=== PATIENT | female | born 1995 | race Caucasian/White ===

== ENCOUNTER 2017-11-12 22:01 | Emergency (ER) | payer SELFPAY ==
--- NOTE | 2017-11-12 22:14 | EDM.PDOC ---
ED HPI GENERAL MEDICAL PROBLEM - General Stated Complaint: SWOLLEN NECK Time Seen by Provider: 11/12/17 22:13 Source of Information: Reports: Patient - History of Present Illness INITIAL COMMENTS - FREE TEXT/NARRATIVE: HISTORY AND PHYSICAL: History of present illness: [Patient presents with sore throat and bilateral ear effusion for several days No fever nausea vomiting chills sweats] no muffled voice trismus or drooling Review of systems: As per history of present illness and below otherwise all systems reviewed and negative. Past medical history: As per history of present illness and as reviewed below otherwise noncontributory. Surgical history: As per history of present illness and as reviewed below otherwise noncontributory. Social history: No reported history of drug or alcohol abuse. Family history: As per history of present illness and as reviewed below otherwise noncontributory. Physical exam: HEENT: Atraumatic, normocephalic, pupils reactive, negative for conjunctival pallor or scleral icterus, mucous membranes moist, throat clear, neck supple, nontender, trachea midline. Moderate erythema of oropharynx tonsils 3+ no exudates there is bilateral effusion Lungs: Clear to auscultation, breath sounds equal bilaterally, chest nontender. Heart: S1S2, regular, negative for clicks, rubs, or JVD. Abdomen: Soft, nondistended, nontender. Negative for masses or hepatosplenomegaly. Negative for costovertebral tenderness. Pelvis: Stable nontender. Genitourinary: Deferred. Rectal: Deferred. Extremities: Atraumatic, negative for cords or calf pain. Neurovascular unremarkable. Neuro: Awake, alert, oriented. Cranial nerves II through XII unremarkable. Cerebellum unremarkable. Motor and sensory unremarkable throughout. Exam nonfocal. Diagnostics: [Rapid strep ] Therapeutics: [Azithromycin ] Impression: [Pharyngitis] Definitive disposition and diagnosis as appropriate pending reevaluation and review of above. - Related Data Allergies Allergy/AdvReac Type Severity Reaction Status Date / Time No Known Allergies Allergy Verified 11/12/17 22:23 Home Meds: Home Meds . [No Known Home Meds] 05/17/15 [History] Past Medical History - Past Health History Medical/Surgical History: Denies Medical/Surgical History Social & Family History - Family History Family Medical History: Noncontributory Endocrine/Metabolic: Reports: Diabetes, Type I ED ROS GENERAL - Review of Systems Review Of Systems: See Below ED EXAM, GENERAL - Physical Exam Exam: See Below Course - Vital Signs Last Recorded V/S: Last Vital Signs Temp 97.9 F 11/12/17 22:20 Pulse 85 11/12/17 22:20 Resp 18 11/12/17 22:20 BP 174/93 H 11/12/17 22:20 Pulse Ox 98 11/12/17 22:20 - Orders/Labs/Meds Orders: Active Orders 24 hr Category Date Time Status STREP SCRN A RAPID W CULT CONF [RM] Stat Lab 11/12/17 22:10 Ordered Departure - Departure Time of Disposition: 22:26 Disposition: Home, Self-Care 01 Condition: Good Clinical Impression: Pharyngitis - Discharge Information Referrals: PCP,None [Primary Care Provider] - Additional Instructions: The following information is given to patients seen in the emergency department who are being discharged to home. This information is to outline your options for follow-up care. We provide all patients seen in our emergency department with a follow-up referral. The need for follow-up, as well as the timing and circumstances, are variable depending upon the specifics of your emergency department visit. If you don't have a primary care physician on staff, we will provide you with a referral. We always advise you to contact your personal physician following an emergency department visit to inform them of the circumstance of the visit and for follow-up with them and/or the need for any referrals to a consulting specialist. The emergency department will also refer you to a specialist when appropriate. This referral assures that you have the opportunity for follow-up care with a specialist. All of these measure are taken in an effort to provide you with optimal care, which includes your follow-up. Under all circumstances we always encourage you to contact your private physician who remains a resource for coordinating your care. When calling for follow-up care, please make the office aware that this follow-up is from your recent emergency room visit. If for any reason you are refused follow-up, please contact the [facility] emergency department at and asked to speak to the emergency department charge nurse. - My Orders Last 24 Hours: My Active Orders 11/12/17 22:10 STREP SCRN A RAPID W CULT CONF [RM] Stat - Assessment/Plan Last 24 Hours: My Active Orders 11/12/17 22:10 STREP SCRN A RAPID W CULT CONF [RM] Stat
[2017-11-12 22:23] VITALS: BP 174/93
== END 2017-11-12 22:40 | disposition home or self-care (01) ==
LOC: MW.ED 22:01
DX: J02.9 Acute pharyngitis, unspecified (principal)
CPT/HCPCS: 87081; 87880; 99283

== ENCOUNTER 2017-11-17 01:00 | Emergency (ER) | payer SELFPAY ==
--- NOTE | 2017-11-17 01:14 | EDM.PDOC ---
ED HPI GENERAL MEDICAL PROBLEM - General Chief Complaint: ENT Problem Stated Complaint: RIGHT EAR PAIN Time Seen by Provider: 11/17/17 01:09 - History of Present Illness INITIAL COMMENTS - FREE TEXT/NARRATIVE: HISTORY AND PHYSICAL: History of present illness: Patient 22-year-old female presents with concern of right ear pain Review of systems: As per history of present illness and below otherwise all systems reviewed and negative. Past medical history: As per history of present illness and as reviewed below otherwise noncontributory. Surgical history: As per history of present illness and as reviewed below otherwise noncontributory. Social history: No reported history of drug or alcohol abuse. Family history: As per history of present illness and as reviewed below otherwise noncontributory. Physical exam: HEENT: Atraumatic, normocephalic, pupils reactive, negative for conjunctival pallor or scleral icterus, mucous membranes moist, throat clear, neck supple, nontender, trachea midline. Lungs: Clear to auscultation, breath sounds equal bilaterally, chest nontender. Right TM is injected with absent light reflex external auditory is also inflamed pinna is tender with movement Heart: S1S2, regular, negative for clicks, rubs, or JVD. Abdomen: Soft, nondistended, nontender. Negative for masses or hepatosplenomegaly. Negative for costovertebral tenderness. Pelvis: Stable nontender. Genitourinary: Deferred. Rectal: Deferred. Extremities: Atraumatic, negative for cords or calf pain. Neurovascular unremarkable. Neuro: Awake, alert, oriented. Cranial nerves II through XII unremarkable. Cerebellum unremarkable. Motor and sensory unremarkable throughout. Exam nonfocal. Diagnostics: None Therapeutics: None Impression: 1 otalgia #2 right otitis media/externa Definitive disposition and diagnosis as appropriate pending reevaluation and review of above. - Related Data Allergies Allergy/AdvReac Type Severity Reaction Status Date / Time No Known Allergies Allergy Verified 11/12/17 22:23 Home Meds: Home Meds . [No Known Home Meds] 05/17/15 [History] Past Medical History - Past Health History Medical/Surgical History: Denies Medical/Surgical History Social & Family History - Family History Family Medical History: Noncontributory Endocrine/Metabolic: Reports: Diabetes, Type I ED ROS GENERAL - Review of Systems Review Of Systems: ROS reveals no pertinent complaints other than HPI. ED EXAM, GENERAL - Physical Exam Exam: See Below (See dictation) Course - Vital Signs Last Recorded V/S: Last Vital Signs Temp 36.4 C 11/17/17 01:09 Pulse 72 11/17/17 01:09 Resp 18 11/17/17 01:09 BP 136/85 11/17/17 01:09 Pulse Ox 98 11/17/17 01:09 Departure - Departure Time of Disposition: : Disposition: Home, Self-Care 01 Condition: Good Clinical Impression: Otitis media, Otitis externa - Discharge Information Referrals: PCP,None [Primary Care Provider] - Additional Instructions: The following information is given to patients seen in the emergency department who are being discharged to home. This information is to outline your options for follow-up care. We provide all patients seen in our emergency department with a follow-up referral. The need for follow-up, as well as the timing and circumstances, are variable depending upon the specifics of your emergency department visit. If you don't have a primary care physician on staff, we will provide you with a referral. We always advise you to contact your personal physician following an emergency department visit to inform them of the circumstance of the visit and for follow-up with them and/or the need for any referrals to a consulting specialist. The emergency department will also refer you to a specialist when appropriate. This referral assures that you have the opportunity for followup care with a specialist. All of these measure are taken in an effort to provide you with optimal care, which includes your followup. Under all circumstances we always encourage you to contact your private physician who remains a resource for coordinating your care. When calling for followup care, please make the office aware that this follow-up is from your recent emergency room visit. If for any reason you are refused follow-up, please contact the [facility] emergency department at and asked to speak to the emergency department charge nurse. Primary Care [address] [place] [id number] Bactrim Cortisporin Tylenol No. 3 as prescribed follow-up primary medical doctor and/or clinic above call to schedule appointment return as needed as discussed
[2017-11-17 01:34] VITALS: BP 130/78
== END 2017-11-17 01:25 | disposition home or self-care (01) ==
LOC: MW.ED 01:00
DX: H66.91 Otitis media, unspecified, right ear (principal); H60.91 Unspecified otitis externa, right ear
CPT/HCPCS: 99282

== ENCOUNTER 2017-11-23 16:31 | Emergency (ER) | payer SELFPAY ==
[2017-11-23] MEDS ORDERED: Sodium Chloride 0.9% 2.5 ML Syringe FLUSH PRN (17:05)
[2017-11-23] MEDS ORDERED: Sodium Chloride 0.9% 10 ML Syringe FLUSH PRN (17:05)
[2017-11-23] MEDS ORDERED: Sodium Chloride 0.9% 1,000 ML IV ONE (17:05)
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
[2017-11-23 18:10] LABS: CHLORIDE,CL 105 mmol/L (98-107); SODIUM,NA 141 mmol/L (136-145)
[2017-11-23] MEDS ORDERED: Iopamidol 755 MG/ML 500 ML Multipack Bottle IVPUSH STA (18:30)
[2017-11-23] MEDS ORDERED: Ketorolac 30 MG/ML SDV IVPUSH ONE (19:00)
[2017-11-23 19:48] VITALS: BP 155/96
--- NOTE | 2017-11-24 07:37 | CT ---
EXAM DATE: 11/23/17 PATIENT'S AGE: 22 Patient: MARYJANE LIZ Facility: [place], [place] Site . Site : 1995 Study: CT Abdomen/Pelvis WITH [id number]/[id number] 6:31:13 PM Ordering Physician: Rosalba Nieto Final Report: HISTORY: Low back pain, bilateral flank pain. TECHNIQUE: The abdomen and pelvis was scanned using helical technique at 3 mm after 100 cc of Isovue-370. Sagittal and coronal reconstructions were performed. FINDINGS: Lung bases: No infiltrate. Liver and gallbladder: The liver parenchyma is homogeneous. No calcified gallstones. Spleen, pancreas and adrenal glands: Unremarkable. Kidneys and bladder: Symmetric nephrograms. No calcified urolithiasis or hydronephrosis. Bladder is incompletely distended which results in diffuse wall thickening. Retroperitoneum and lymph nodes: Aorta is normal caliber. No pathologic periaortic lymphadenopathy. GI tract: Small amount of fluid is seen within the stomach. No dilated small bowel loops are seen. Normal appendix. Small amount of stool and gas is seen scattered throughout the colon with areas of decompression. No pericolonic inflammatory change. There is no free air in the abdomen. There is no free fluid the pelvis. Pelvic organs: 4.6 cm left ovarian cyst. Uterus and right ovary are normal. Osseous structures: Disc spaces and vertebral body heights maintained. Endplates are well defined. Abdominal wall: Tiny fat containing umbilical hernia. No inflammatory change. IMPRESSION: 1. 4.6 cm left ovarian cyst. 2. No calcified urolithiasis, hydronephrosis or ureteral obstruction. The bladder is decompressed which results in diffuse wall thickening. 3. Normal appendix. Dictated by Amy Sullivan MD @ 11/23/2017 6:47:27 PM Please note that all CT scans at this facility use dose modulation, iterative reconstruction, and/or weight-based dosing when appropriate to reduce radiation dose to as low as reasonably achievable. Dictated by: Amy Sullivan MD @ 11/23/2017 18:48:20 (Electronic Signature) Report Signed by Proxy. [facility]ENTER[facility]alini
--- NOTE | 2017-11-24 07:38 | CT ---
EXAM DATE: 11/23/17 PATIENT'S AGE: 22 Patient: MARYJANE LIZ Facility: [place], [place] Site . Site : 1995 Study: CT Spine Lumbar [id number] 7:02:13 PM Ordering Physician: Rosalba Nieto Final Report: INDICATION: Low back pain TECHNIQUE: CT lumbar spine without contrast. COMPARISON: None available FINDINGS: The lumbar spine alignment is within normal limits. The vertebral body heights are preserved without a compression deformity. There is no evidence of an acute lumbar spine fracture. There are apparent tiny disc protrusions at L4-5 and L5- S1. There is no significant central canal stenosis. No paravertebral soft tissue mass is seen. IMPRESSION: No evidence of an acute lumbar spine fracture. Apparent tiny disk protrusions in the lower lumbar spine without central canal stenosis. Dictated by Cj Shah MD @ 11/23/2017 7:24:10 PM Please note that all CT scans at this facility use dose modulation, iterative reconstruction, and/or weight-based dosing when appropriate to reduce radiation dose to as low as reasonably achievable. Dictated by: Cj Shah MD @ 11/23/2017 19:24:18 (Electronic Signature) Report Signed by Proxy. [facility]ITAL[facility]ini
== END 2017-11-23 19:50 | disposition home or self-care (01) ==
LOC: MW.ED 16:31
DX: M51.86 Other intervertebral disc disorders, lumbar region (principal); N83.202 Unspecified ovarian cyst, left side; F17.210 Nicotine dependence, cigarettes, uncomplicated
CPT/HCPCS: 36415; 72131; 74177; 80053; 81001; 82150; 83690; 84703; 85025; 96361; 96374; 99284; J1885; J7040; Q9967

== ENCOUNTER 2017-11-25 23:20 | Emergency (ER) | payer SELFPAY ==
--- NOTE | 2017-11-25 23:33 | EDM.PDOC ---
ED HPI GENERAL MEDICAL PROBLEM - General Chief Complaint: General Stated Complaint: NUMBNESS Time Seen by Provider: 11/25/17 23:33 Source of Information: Reports: Patient - History of Present Illness INITIAL COMMENTS - FREE TEXT/NARRATIVE: HISTORY AND PHYSICAL: History of present illness: 22-year-old female presenting mentioned department chief complaint of bilateral ear pain and sore scratchy throat 2 weeks. Patient states that she's had a sore scratchy throat for the past 2 weeks. She had been in the emergency department previously for similar symptoms and did not have a strep infection at that time. States it she has bilateral ear pain that is intermittent. She has had some associated nausea. She denies any associated fever, chills, nausea, vomiting, diarrhea or other signs of systemic infection. Currently denies any chest pain, palpitation, shortness of breath, syncopal episodes, or focal neurologic deficits. On exam right tympanic membrane is retracted no effusions or erythema. Left tympanic membrane is bulging with no effusions or erythema. Review of systems: As per history of present illness and below otherwise all systems reviewed and negative. Past medical history: As per history of present illness and as reviewed below otherwise noncontributory. Surgical history: As per history of present illness and as reviewed below otherwise noncontributory. Social history: No reported history of drug or alcohol abuse. Family history: As per history of present illness and as reviewed below otherwise noncontributory. Physical exam: HEENT: Atraumatic, normocephalic, pupils reactive, negative for conjunctival pallor or scleral icterus, mucous membranes moist, throat clear, neck supple, nontender, trachea midline. Lungs: Clear to auscultation, breath sounds equal bilaterally, chest nontender. Heart: S1S2, regular, negative for clicks, rubs, or JVD. Abdomen: Soft, nondistended, nontender. Negative for masses or hepatosplenomegaly. Negative for costovertebral tenderness. Pelvis: Stable nontender. Genitourinary: Deferred. Rectal: Deferred. Extremities: Atraumatic, negative for cords or calf pain. Neurovascular unremarkable. Neuro: Awake, alert, oriented. Cranial nerves II through XII unremarkable. Cerebellum unremarkable. Motor and sensory unremarkable throughout. Exam nonfocal. Diagnostics: CBC, CMP, UA, hCG, Therapeutics: 1 L normal saline, 8 mg IV Zofran Impression: Seasonal allergy Bilateral ear pain Plan: After discussion with patient most likely she is suffering from acute seasonal allergies. Surgery use Flonase and Afrin 2 puffs each nostril twice daily maximum 5 days for relief her sinus congestion. She should also use a cool mist vaporizer at night. She can use a Marisol pot as well for flushing. She should follow up with primary care provider and return to emergency department if any new or worsening symptoms. head Pain Score (Numeric/FACES): 7 - Related Data Allergies Allergy/AdvReac Type Severity Reaction Status Date / Time No Known Allergies Allergy Verified 11/25/17 23:25 Home Meds: Home Meds . 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: Musculoskeletal History: Reports: None Neurological History: Reports: None Psychiatric History: Reports: None Endocrine/Metabolic History: Reports: Obesity/BMI 30+ Hematologic History: Reports: None Immunologic History: Reports: None Oncologic (Cancer) History: Reports: None Dermatologic History: Reports: None - Infectious Disease History Infectious Disease History: Reports: Chicken Pox - Past Surgical History Head Surgeries/Procedures: Reports: None Respiratory Surgical History: Reports: None Female Surgical History: Reports: None Social & Family History - Family History Family Medical History: Noncontributory Endocrine/Metabolic: Reports: Diabetes, Type I - Tobacco Use Smoking Status *Q: Never Smoker - Caffeine Use Caffeine Use: Reports: None - Recreational Drug Use Recreational Drug Use: No ED ROS GENERAL - Review of Systems Review Of Systems: ROS reveals no pertinent complaints other than HPI. ED EXAM, GENERAL - Physical Exam Exam: See Below Course - Vital Signs Last Recorded V/S: Last Vital Signs Temp 97.2 F 11/26/17 00:49 Pulse 61 11/26/17 00:49 Resp 18 11/26/17 00:49 BP 139/80 11/26/17 00:49 Pulse Ox 98 11/26/17 00:49 - Orders/Labs/Meds Orders: Active Orders 24 hr Category Date Time Status EKG Documentation Completion [RC] STAT Care 11/25/17 23:44 Active CULTURE STREP A CONFIRMATION [RM] Stat Lab 11/26/17 00:05 Results CULTURE URINE [] Stat Lab 11/26/17 00:10 Received HCG QUALITATIVE,URINE [URCHEM] Stat Lab 11/26/17 00:10 Ordered STREP SCRN A RAPID W CULT CONF [RM] Stat Lab 11/26/17 00:05 Ordered UA W/MICROSCOPIC [URIN] Stat Lab 11/26/17 00:10 Ordered Labs: Laboratory Tests 11/25/17 11/25/17 11/26/17 Range/Units 23:55 23:55 00:10 WBC 11.23 H (4.0-11.0) K/uL RBC 4.77 (4.30-5.90) M/uL Hgb 13.7 (12.0-16.0) g/dL Hct 41.3 (36.0-46.0) % MCV 86.6 (80.0-98.0) fL MCH 28.7 (27.0-32.0) pg MCHC 33.2 (31.0-37.0) g/dL RDW Std Deviation 45.0 (28.0-62.0) fl RDW Coeff of Fiona 14 (11.0-15.0) % Plt Count 210 (150-400) K/uL MPV 12.50 H (7.40-12.00) fL Neut % (Auto) 63.9 (48.0-80.0) % Lymph % (Auto) 26.8 (16.0-40.0) % [place] % (Auto) 8.5 (0.0-15.0) % Eos % (Auto) 0.5 (0.0-7.0) % Baso % (Auto) 0.3 (0.0-1.5) % Neut # (Auto) 7.2 H (1.4-5.7) K/uL Lymph # (Auto) 3.0 H (0.6-2.4) K/uL [place] # (Auto) 1.0 H (0.0-0.8) K/uL Eos # (Auto) 0.1 (0.0-0.7) K/uL Baso # (Auto) 0.0 (0.0-0.1) K/uL Nucleated RBC % 0.0 /100WBC Nucleated RBCs # 0 K/uL Sodium 141 (136-145) mmol/L Potassium 3.8 (3.5-5.1) mmol/L Chloride 106 (98-107) mmol/L Carbon Dioxide 22.4 (21.0-32.0) mmol/L BUN 9 (7.0-18.0) mg/dL Creatinine 0.8 (0.6-1.0) mg/dL Est Cr Clr Drug Dosing 111.27 mL/min Estimated GFR (MDRD) > 60.0 ml/min Glucose 84 (74-106) mg/dL Calcium 9.3 (8.5-10.1) mg/dL Total Bilirubin 0.5 (0.2-1.0) mg/dL AST 21 (15-37) IU/L ALT 43 (14-63) IU/L Alkaline Phosphatase 97 (46-116) U/L Total Protein 7.6 (6.4-8.2) g/dL Albumin 4.2 (3.4-5.0) g/dL Globulin 3.4 (2.0-3.5) g/dL Albumin/Globulin Ratio 1.2 L (1.3-2.8) Urine Color RED Urine Appearance CLOUDY Urine pH 6.0 (5.0-8.0) Ur Specific [place] 1.020 (1.001-1.035) Urine Protein 30 (NEGATIVE) mg/dL Urine Glucose (UA) NEGATIVE (NEGATIVE) mg/dL Urine Ketones >=80 (NEGATIVE) mg/dL Urine Occult Blood LARGE H (NEGATIVE) Urine Nitrite NEGATIVE (NEGATIVE) Urine Bilirubin SMALL H (NEGATIVE) Urine Urobilinogen 0.2 (<2.0) EU/dL Ur Leukocyte Esterase TRACE (NEGATIVE) Urine RBC TOO NUMEROUS TO CT H (0-2/HPF) Urine WBC 1-3 (0-5/HPF) Ur Epithelial Cells FEW (NONE-FEW) Urine Bacteria FEW (NEGATIVE) Urinalysis Comment Urine HCG, Qual (NEGATIVE) 11/26/17 Range/Units 00:10 WBC (4.0-11.0) K/uL RBC (4.30-5.90) M/uL Hgb (12.0-16.0) g/dL Hct (36.0-46.0) % MCV (80.0-98.0) fL MCH (27.0-32.0) pg MCHC (31.0-37.0) g/dL RDW Std Deviation (28.0-62.0) fl RDW Coeff of Fiona (11.0-15.0) % Plt Count (150-400) K/uL MPV (7.40-12.00) fL Neut % (Auto) (48.0-80.0) % Lymph % (Auto) (16.0-40.0) % [place] % (Auto) (0.0-15.0) % Eos % (Auto) (0.0-7.0) % Baso % (Auto) (0.0-1.5) % Neut # (Auto) (1.4-5.7) K/uL Lymph # (Auto) (0.6-2.4) K/uL [place] # (Auto) (0.0-0.8) K/uL Eos # (Auto) (0.0-0.7) K/uL Baso # (Auto) (0.0-0.1) K/uL Nucleated RBC % /100WBC Nucleated RBCs # K/uL Sodium (136-145) mmol/L Potassium (3.5-5.1) mmol/L Chloride (98-107) mmol/L Carbon Dioxide (21.0-32.0) mmol/L BUN (7.0-18.0) mg/dL Creatinine (0.6-1.0) mg/dL Est Cr Clr Drug Dosing mL/min Estimated GFR (MDRD) ml/min Glucose (74-106) mg/dL Calcium (8.5-10.1) mg/dL Total Bilirubin (0.2-1.0) mg/dL AST (15-37) IU/L ALT (14-63) IU/L Alkaline Phosphatase (46-116) U/L Total Protein (6.4-8.2) g/dL Albumin (3.4-5.0) g/dL Globulin (2.0-3.5) g/dL Albumin/Globulin Ratio (1.3-2.8) Urine Color Urine Appearance Urine pH (5.0-8.0) Ur Specific [place] (1.001-1.035) Urine Protein (NEGATIVE) mg/dL Urine Glucose (UA) (NEGATIVE) mg/dL Urine Ketones (NEGATIVE) mg/dL Urine Occult Blood (NEGATIVE) Urine Nitrite (NEGATIVE) Urine Bilirubin (NEGATIVE) Urine Urobilinogen (<2.0) EU/dL Ur Leukocyte Esterase (NEGATIVE) Urine RBC (0-2/HPF) Urine WBC (0-5/HPF) Ur Epithelial Cells (NONE-FEW) Urine Bacteria (NEGATIVE) Urinalysis Comment Urine HCG, Qual NEGATIVE (NEGATIVE) Meds: Medications Discontinued Medications Generic Name Dose Route Start Last Admin Trade Name Sherie PRN Reason Stop Dose Admin Sodium Chloride 1,000 mls @ 999 mls/hr 11/25/17 23:46 11/26/17 00:15 Normal Saline IV 11/26/17 00:46 999 mls/hr STAT ONE Administration Ondansetron HCl 8 mg 11/25/17 23:46 11/26/17 00:15 Zofran IVPUSH 11/25/17 23:47 8 mg ONETIME ONE Administration Departure - Departure Time of Disposition: 01:54 Disposition: Home, Self-Care 01 Condition: Good Clinical Impression: Seasonal allergic reaction - Discharge Information Forms: ED Department Discharge Additional Instructions: My general discharge The following information is given to patients seen in the emergency department who are being discharged to home. This information is to outline your options for follow-up care. We provide all patients seen in our emergency department with a follow-up referral. The need for follow-up, as well as the timing and circumstances, are variable depending upon the specifics of your emergency department visit. If you don't have a primary care physician on staff, we will provide you with a referral. We always advise you to contact your personal physician following an emergency department visit to inform them of the circumstance of the visit and for follow-up with them and/or the need for any referrals to a consulting specialist. The emergency department will also refer you to a specialist when appropriate. This referral assures that you have the opportunity for follow-up care with a specialist. All of these measure are taken in an effort to provide you with optimal care, which includes your follow-up. Under all circumstances we always encourage you to contact your private physician who remains a resource for coordinating your care. When calling for follow-up care, please make the office aware that this follow-up is from your recent emergency room visit. If for any reason you are refused follow-up, please contact the [facility] Emergency Department at and asked to speak to the emergency department charge nurse. [facility] [address] [place] [id number] 1. Follow-up with primary care provider. 2. Use Flonase and Afrin as well as Marisol pot as we discussed. 3. May also use [id number] antihistamine. 4. Return emergency department if any new or worsening symptoms. - My Orders Last 24 Hours: My Active Orders 11/25/17 23:44 EKG Documentation Completion [RC] STAT 11/26/17 00:05 CULTURE STREP A CONFIRMATION [RM] Stat STREP SCRN A RAPID W CULT CONF [RM] Stat 11/26/17 00:10 CULTURE URINE [RM] Stat HCG QUALITATIVE,URINE [URCHEM] Stat UA W/MICROSCOPIC [URIN] Stat - Assessment/Plan Last 24 Hours: My Active Orders 11/25/17 23:44 EKG Documentation Completion [RC] STAT 11/26/17 00:05 CULTURE STREP A CONFIRMATION [RM] Stat STREP SCRN A RAPID W CULT CONF [RM] Stat 11/26/17 00:10 CULTURE URINE [RM] Stat HCG QUALITATIVE,URINE [URCHEM] Stat UA W/MICROSCOPIC [URIN] Stat
[2017-11-25] MEDS ORDERED: Ondansetron 4 MG/2 ML SDV IVPUSH ONE (23:46)
[2017-11-25] MEDS ORDERED: Sodium Chloride 0.9% 1,000 ML IV ONE (23:46)
[2017-11-26 00:29] LABS: CHLORIDE,CL 106 mmol/L (98-107); SODIUM,NA 141 mmol/L (136-145)
[2017-11-26 02:08] VITALS: BP 145/83
== END 2017-11-26 02:09 | disposition home or self-care (01) ==
LOC: MW.ED 23:20
DX: J30.2 Other seasonal allergic rhinitis (principal); H92.03 Otalgia, bilateral; E66.9 Obesity, unspecified
CPT/HCPCS: 36415; 80053; 81001; 81025; 82962; 85025; 87081; 87086; 87880; 93005; 96361; 96374; 99285; J2405; J7040

== ENCOUNTER 2017-12-05 20:13 | Emergency (ER) | payer OTHER ==
--- NOTE | 2017-12-05 20:35 | EDM.PDOC ---
ED HPI GENERAL MEDICAL PROBLEM - General Chief Complaint: Behavioral/Psych Stated Complaint: PT TRYING TO HARM HERSELF Time Seen by Provider: 12/05/17 20:14 Source of Information: Reports: Patient History Limitations: Reports: No Limitations - History of Present Illness INITIAL COMMENTS - FREE TEXT/NARRATIVE: HISTORY AND PHYSICAL: History of present illness 22-year-old female presenting the [facility] department with chief complaint of wanting to harm herself with past medical history of depression. who is present helps with the history. Patient states that she has felt overly depressed for some time now. states that he is getting to the point where he is afraid to leave her alone. Patient states that she does have a plan which would be to take "a bunch of pills". Does not have a narcotics prescription but does have a prescription for a muscle relaxer. states that he has taken all the pills away from her. Patient has been seen multiple times in the emergency department for other issues including nausea, vomiting, abdominal pain, and tingling sensation in her neck. I saw the patient for some seasonal allergies and she states that her nasal therapy has been helping. She also saw Dr. Capone who prescribed a muscle relaxer for her neck "tingling". does think that her depression may be somewhat stemming from her multiple medical issues without clear etiology. She does have a history of depression after her in 2016. States that that depression was much less severe than what she is experiencing now. States that she has not taken any drugs or alcohol. She currently denies any chest pain, palpitations, shortness breath, single episode, focal neurologic deficits. EKG shows normal sinus rhythm with heart rate of [address] changes. Review of systems: As per history of present illness and below otherwise all systems reviewed and negative. Past medical history: As per history of present illness and as reviewed below otherwise noncontributory. Surgical history: As per history of present illness and as reviewed below otherwise noncontributory. Social history: No reported history of drug or alcohol abuse. Family history: As per history of present illness and as reviewed below otherwise noncontributory. Physical exam: HEENT: Atraumatic, normocephalic, pupils reactive, negative for conjunctival pallor or scleral icterus, mucous membranes moist, throat clear, neck supple, nontender, trachea midline. Lungs: Clear to auscultation, breath sounds equal bilaterally, chest nontender. Heart: S1S2, regular, negative for clicks, rubs, or JVD. Abdomen: Soft, nondistended, nontender. Negative for masses or hepatosplenomegaly. Negative for costovertebral tenderness. Pelvis: Stable nontender. Genitourinary: Deferred. Rectal: Deferred. Extremities: Atraumatic, negative for cords or calf pain. Neurovascular unremarkable. Neuro: Awake, alert, oriented. Cranial nerves II through XII unremarkable. Cerebellum unremarkable. Motor and sensory unremarkable throughout. Exam nonfocal. Diagnostics: CBC, CMP, UA, UDS, hCG, EKG, EtOH, salicylate, Tylenol, TSH, mag Therapeutics: Ativan 1 mg by mouth 1 Impression: Suicidal ideations with plan Plan: CBC, CMP, hCG, EKG, EtOH, salicylates, Tylenol, TSH, and mag were all unremarkable. UDS was positive for marijuana. Patient also seemed to have a UTI with slight leukocyte esterase positive and positive for white blood cells. She was given 250 mg IM Rocephin and this was communicated to Dr. Talley who will treat her with oral Bactrim that we discussed. He also accepted the patient after all of the above was communicated and patient was placed on hold. 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: Musculoskeletal History: Reports: None Neurological History: Reports: None Psychiatric History: Reports: None Endocrine/Metabolic History: Reports: Obesity/BMI 30+ Hematologic History: Reports: None Immunologic History: Reports: None Oncologic (Cancer) History: Reports: None Dermatologic History: Reports: None - Infectious Disease History Infectious Disease History: Reports: Chicken Pox - Past Surgical History Head Surgeries/Procedures: Reports: None Respiratory Surgical History: Reports: None Female Surgical History: Reports: None Social & Family History - Family History Family Medical History: Noncontributory Endocrine/Metabolic: Reports: Diabetes, Type I - Caffeine Use Caffeine Use: Reports: None ED ROS GENERAL - Review of Systems Review Of Systems: ROS reveals no pertinent complaints other than HPI. ED EXAM, GENERAL - Physical Exam Exam: See Below Course - Vital Signs Last Recorded V/S: Last Vital Signs Temp 98 F 12/05/17 21:52 Pulse 69 12/05/17 21:52 Resp 19 12/05/17 21:52 BP 143/99 H 12/05/17 21:52 Pulse Ox 98 12/05/17 21:52 - Orders/Labs/Meds Orders: Active Orders 24 hr Category Date Time Status EKG Documentation Completion [RC] STAT Care 12/05/17 20:25 Active DRUG SCREEN, URINE [URCHEM] Stat Lab 12/05/17 20:25 Ordered UA W/MICROSCOPIC [URIN] Stat Lab 12/05/17 20:25 Ordered Labs: Laboratory Tests 12/05/17 12/05/17 12/05/17 Range/Units 20:25 20:25 20:40 WBC 9.78 (4.0-11.0) K/uL RBC 4.95 (4.30-5.90) M/uL Hgb 14.4 (12.0-16.0) g/dL Hct 43.4 (36.0-46.0) % MCV 87.7 (80.0-98.0) fL MCH 29.1 (27.0-32.0) pg MCHC 33.2 (31.0-37.0) g/dL RDW Std Deviation 46.7 (28.0-62.0) fl RDW Coeff of Fiona 15 (11.0-15.0) % Plt Count 197 (150-400) K/uL MPV 12.40 H (7.40-12.00) fL Neut % (Auto) 68.0 (48.0-80.0) % Lymph % (Auto) 24.5 (16.0-40.0) % [place] % (Auto) 6.5 (0.0-15.0) % Eos % (Auto) 0.8 (0.0-7.0) % Baso % (Auto) 0.2 (0.0-1.5) % Neut # (Auto) 6.6 H (1.4-5.7) K/uL Lymph # (Auto) 2.4 (0.6-2.4) K/uL [place] # (Auto) 0.6 (0.0-0.8) K/uL Eos # (Auto) 0.1 (0.0-0.7) K/uL Baso # (Auto) 0.0 (0.0-0.1) K/uL Nucleated RBC % 0.0 /100WBC Nucleated RBCs # 0 K/uL Sodium (136-145) mmol/L Potassium (3.5-5.1) mmol/L Chloride (98-107) mmol/L Carbon Dioxide (21.0-32.0) mmol/L BUN (7.0-18.0) mg/dL Creatinine (0.6-1.0) mg/dL Est Cr Clr Drug Dosing mL/min Estimated GFR (MDRD) ml/min Glucose (74-106) mg/dL Calcium (8.5-10.1) mg/dL Magnesium (1.8-2.4) mg/dL Total Bilirubin (0.2-1.0) mg/dL AST (15-37) IU/L ALT (14-63) IU/L Alkaline Phosphatase (46-116) U/L Total Protein (6.4-8.2) g/dL Albumin (3.4-5.0) g/dL Globulin (2.0-3.5) g/dL Albumin/Globulin Ratio (1.3-2.8) TSH 3rd Generation (0.36-3.74) uIU/mL Urine Color YELLOW Urine Appearance SLT CLOUDY Urine pH 6.0 (5.0-8.0) Ur Specific [place] >= 1.030 (1.001-1.035) Urine Protein TRACE (NEGATIVE) mg/dL Urine Glucose (UA) NEGATIVE (NEGATIVE) mg/dL Urine Ketones TRACE H (NEGATIVE) mg/dL Urine Occult Blood SMALL H (NEGATIVE) Urine Nitrite NEGATIVE (NEGATIVE) Urine Bilirubin SMALL H (NEGATIVE) Urine Urobilinogen 0.2 (<2.0) EU/dL Ur Leukocyte Esterase SMALL (NEGATIVE) Urine RBC 0-3 (0-2/HPF) Urine WBC 20-25 (0-5/HPF) Ur Epithelial Cells MODERATE (NONE-FEW) Urine Bacteria 2+ H (NEGATIVE) Salicylates (0-20) mg/dL Urine Opiates Screen NEGATIVE (NEGATIVE) Ur Oxycodone Screen NEGATIVE (NEGATIVE) Urine Methadone Screen NEGATIVE (NEGATIVE) Acetaminophen ug/mL Ur Barbiturates Screen NEGATIVE (NEGATIVE) Ur Phencyclidine Scrn NEGATIVE (NEGATIVE) Ur Amphetamine Screen NEGATIVE (NEGATIVE) U Methamphetamines Scrn NEGATIVE (NEGATIVE) U Benzodiazepines Scrn NEGATIVE (NEGATIVE) U Cocaine Metab Screen NEGATIVE (NEGATIVE) U Marijuana (THC) Screen POSITIVE (NEGATIVE) Ethyl Alcohol mg/dL 12/05/17 Range/Units 20:40 WBC (4.0-11.0) K/uL RBC (4.30-5.90) M/uL Hgb (12.0-16.0) g/dL Hct (36.0-46.0) % MCV (80.0-98.0) fL MCH (27.0-32.0) pg MCHC (31.0-37.0) g/dL RDW Std Deviation (28.0-62.0) fl RDW Coeff of Fiona (11.0-15.0) % Plt Count (150-400) K/uL MPV (7.40-12.00) fL Neut % (Auto) (48.0-80.0) % Lymph % (Auto) (16.0-40.0) % [place] % (Auto) (0.0-15.0) % Eos % (Auto) (0.0-7.0) % Baso % (Auto) (0.0-1.5) % Neut # (Auto) (1.4-5.7) K/uL Lymph # (Auto) (0.6-2.4) K/uL [place] # (Auto) (0.0-0.8) K/uL Eos # (Auto) (0.0-0.7) K/uL Baso # (Auto) (0.0-0.1) K/uL Nucleated RBC % /100WBC Nucleated RBCs # K/uL Sodium 142 (136-145) mmol/L Potassium 3.8 (3.5-5.1) mmol/L Chloride 106 (98-107) mmol/L Carbon Dioxide 23.7 (21.0-32.0) mmol/L BUN 14 (7.0-18.0) mg/dL Creatinine 0.9 (0.6-1.0) mg/dL Est Cr Clr Drug Dosing 98.91 mL/min Estimated GFR (MDRD) > 60.0 ml/min Glucose 91 (74-106) mg/dL Calcium 9.3 (8.5-10.1) mg/dL Magnesium 1.7 L (1.8-2.4) mg/dL Total Bilirubin 0.4 (0.2-1.0) mg/dL AST 22 (15-37) IU/L ALT 53 (14-63) IU/L Alkaline Phosphatase 108 (46-116) U/L Total Protein 7.7 (6.4-8.2) g/dL Albumin 4.4 (3.4-5.0) g/dL Globulin 3.3 (2.0-3.5) g/dL Albumin/Globulin Ratio 1.3 (1.3-2.8) TSH 3rd Generation 1.32 (0.36-3.74) uIU/mL Urine Color Urine Appearance Urine pH (5.0-8.0) Ur Specific [place] (1.001-1.035) Urine Protein (NEGATIVE) mg/dL Urine Glucose (UA) (NEGATIVE) mg/dL Urine Ketones (NEGATIVE) mg/dL Urine Occult Blood (NEGATIVE) Urine Nitrite (NEGATIVE) Urine Bilirubin (NEGATIVE) Urine Urobilinogen (<2.0) EU/dL Ur Leukocyte Esterase (NEGATIVE) Urine RBC (0-2/HPF) Urine WBC (0-5/HPF) Ur Epithelial Cells (NONE-FEW) Urine Bacteria (NEGATIVE) Salicylates 1.9 (0-20) mg/dL Urine Opiates Screen (NEGATIVE) Ur Oxycodone Screen (NEGATIVE) Urine Methadone Screen (NEGATIVE) Acetaminophen 0.0 ug/mL Ur Barbiturates Screen (NEGATIVE) Ur Phencyclidine Scrn (NEGATIVE) Ur Amphetamine Screen (NEGATIVE) U Methamphetamines Scrn (NEGATIVE) U Benzodiazepines Scrn (NEGATIVE) U Cocaine Metab Screen (NEGATIVE) U Marijuana (THC) Screen (NEGATIVE) Ethyl Alcohol < 3.0 mg/dL Meds: Medications Discontinued Medications Generic Name Dose Route Start Last Admin Trade Name Freq PRN Reason Stop Dose Admin Ceftriaxone Sodium 250 mg 12/05/17 21:56 Rocephin IM 12/05/17 21:57 ONETIME ONE Ibuprofen 800 mg 07/01/18 21:56 Motrin PO 12/05/17 21:57 ONETIME ONE Lorazepam 1 mg 12/05/17 20:47 12/05/17 21:18 Ativan PO 12/05/17 20:48 1 mg ONETIME ONE Administration Departure - Departure Time of Disposition: 22:00 Disposition: DC/Tfer to Psych Hosp/Unit 65 Condition: Good Clinical Impression: Depression with suicidal ideation UTI (urinary tract infection) Qualifiers: Urinary tract infection type: acute cystitis Hematuria presence: without hematuria Qualified Code(s): N30.00 - Acute cystitis without hematuria - Discharge Information Referrals: PCP,None [Primary Care Provider] - Forms: ED Department Discharge - My Orders Last 24 Hours: My Active Orders 12/05/17 20:25 EKG Documentation Completion [RC] STAT DRUG SCREEN, URINE [URCHEM] Stat UA W/MICROSCOPIC [URIN] Stat - Assessment/Plan Last 24 Hours: My Active Orders 12/05/17 20:25 EKG Documentation Completion [RC] STAT DRUG SCREEN, URINE [URCHEM] Stat UA W/MICROSCOPIC [URIN] Stat
[2017-12-05] MEDS ORDERED: LORazepam 1 MG Tab PO ONE (20:47)
[2017-12-05 21:22] LABS: CHLORIDE,CL 106 mmol/L (98-107); SODIUM,NA 142 mmol/L (136-145)
[2017-12-05 21:53] VITALS: BP 143/99
[2017-12-05] MEDS ORDERED: cefTRIAXone 250 MG Vial IM ONE (21:56)
[2017-12-05] MEDS ORDERED: Ibuprofen 800 MG Tab PO ONE (21:56)
[2017-12-05] MEDS ORDERED: Lidocaine 1% 20 ML MDV INJECT ONE (22:01)
[2017-12-05] MEDS ORDERED: Lidocaine 1% 2 ML ONE (22:09)
== END 2017-12-05 23:30 ==
LOC: MW.ED 20:13
DX: F32.9 Major depressive disorder, single episode, unspecified (principal); R45.851 Suicidal ideations; N30.00 Acute cystitis without hematuria
CPT/HCPCS: 36415; 80053; 80305; 81001; 83735; 84443; 85025; 96372; 99285; A9270; G0480; J0696; J2001

== ENCOUNTER 2017-12-12 04:06 | Emergency (ER) | payer SELFPAY ==
[2017-12-12 04:14] VITALS: BP 133/89
[2017-12-12] MEDS ORDERED: Acetaminophen 500 MG Tab PO ONE (04:24)
--- NOTE | 2017-12-12 04:25 | EDM.PDOC ---
ED HPI GENERAL MEDICAL PROBLEM - General Chief Complaint: Headache Stated Complaint: HEADACHE Time Seen by Provider: 12/12/17 04:22 - History of Present Illness INITIAL COMMENTS - FREE TEXT/NARRATIVE: HISTORY AND PHYSICAL: History of present illness: Patient is 22-year-old female presents with a concern of headache states she's had this off and on for the last week she denies trauma no numbness no weakness no nausea no vomiting she denies history of migraine headache. Review of systems: As per history of present illness and below otherwise all systems reviewed and negative. Past medical history: As per history of present illness and as reviewed below otherwise noncontributory. Surgical history: As per history of present illness and as reviewed below otherwise noncontributory. Social history: No reported history of drug or alcohol abuse. Family history: As per history of present illness and as reviewed below otherwise noncontributory. Physical exam: HEENT: Atraumatic, normocephalic, pupils reactive, negative for conjunctival pallor or scleral icterus, mucous membranes moist, throat clear, neck supple, nontender, trachea midline. Lungs: Clear to auscultation, breath sounds equal bilaterally, chest nontender. Heart: S1S2, regular, negative for clicks, rubs, or JVD. Abdomen: Soft, nondistended, nontender. Negative for masses or hepatosplenomegaly. Negative for costovertebral tenderness. Pelvis: Stable nontender. Genitourinary: Deferred. Rectal: Deferred. Extremities: Atraumatic, negative for cords or calf pain. Neurovascular unremarkable. Neuro: Awake, alert, oriented. Cranial nerves II through XII unremarkable. Cerebellum unremarkable. Motor and sensory unremarkable throughout. Exam nonfocal. Diagnostics: CT brain hCG Therapeutics: Tylenol 1 g Impression: #1 cephalgia Definitive disposition and diagnosis as appropriate pending reevaluation and review of above. 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: Musculoskeletal History: Reports: None Neurological History: Reports: None Psychiatric History: Reports: None Other Psychiatric History: post depression Endocrine/Metabolic History: Reports: Obesity/BMI 30+ Hematologic History: Reports: None Immunologic History: Reports: None Oncologic (Cancer) History: Reports: None Dermatologic History: Reports: None - Infectious Disease History Infectious Disease History: Reports: Chicken Pox - Past Surgical History Head Surgeries/Procedures: Reports: None Respiratory Surgical History: Reports: None Female Surgical History: Reports: None Social & Family History - Family History Family Medical History: Noncontributory Endocrine/Metabolic: Reports: Diabetes, Type I - Tobacco Use Smoking Status *Q: Never Smoker - Caffeine Use Caffeine Use: Reports: None ED ROS GENERAL - Review of Systems Review Of Systems: ROS reveals no pertinent complaints other than HPI. ED EXAM, GENERAL - Physical Exam Exam: See Below (Dictation) Course - Vital Signs Last Recorded V/S: Last Vital Signs Temp 36.2 C 12/12/17 04:13 Pulse 97 12/12/17 04:13 Resp 18 12/12/17 04:13 BP 133/89 12/12/17 04:13 Pulse Ox 97 12/12/17 04:13 - Orders/Labs/Meds Orders: Active Orders 24 hr Category Date Time Status Head wo Cont [CT] Stat Exams 12/12/17 04:16 Ordered HCG QUALITATIVE,SERUM [CHEM] Stat Lab 12/12/17 04:17 Ordered Departure - Departure Time of Disposition: 04:24 Disposition: Home, Self-Care 01 Condition: Good Clinical Impression: Cephalgia - Discharge Information Referrals: Dionisio Capone [Primary Care Provider] - Additional Instructions: The following information is given to patients seen in the emergency department who are being discharged to home. This information is to outline your options for follow-up care. We provide all patients seen in our emergency department with a follow-up referral. The need for follow-up, as well as the timing and circumstances, are variable depending upon the specifics of your emergency department visit. If you don't have a primary care physician on staff, we will provide you with a referral. We always advise you to contact your personal physician following an emergency department visit to inform them of the circumstance of the visit and for follow-up with them and/or the need for any referrals to a consulting specialist. The emergency department will also refer you to a specialist when appropriate. This referral assures that you have the opportunity for followup care with a specialist. All of these measure are taken in an effort to provide you with optimal care, which includes your followup. Under all circumstances we always encourage you to contact your private physician who remains a resource for coordinating your care. When calling for followup care, please make the office aware that this follow-up is from your recent emergency room visit. If for any reason you are refused follow-up, please contact the [facility] emergency department at and asked to speak to the emergency department charge nurse. [facility] [address] [place] [id number] Motrin/Tylenol as directed follow-up primary medical doctor return as needed as discussed - My Orders Last 24 Hours: My Active Orders 12/12/17 04:16 Head wo Cont [CT] Stat 12/12/17 04:17 HCG QUALITATIVE,SERUM [CHEM] Stat - Assessment/Plan Last 24 Hours: My Active Orders 12/12/17 04:16 Head wo Cont [CT] Stat 12/12/17 04:17 HCG QUALITATIVE,SERUM [CHEM] Stat
--- NOTE | 2017-12-13 20:36 | CT ---
EXAM DATE: 12/12/17 PATIENT'S AGE: 22 Patient: MARYJANE LIZ Facility: [place], [place] Site . Site : 1995 Study: CT Head [id number] 5:14:13 AM Ordering Physician: Doctor Ramirez Final Report: CT HEAD DATE: 12/12/2017 CLINICAL HISTORY: Patient with severe headache since last night and blurred vision. TECHNIQUE: Standard CT scanning of the head was performed. COMPARISON: None. FINDINGS: There is no intracranial hemorrhage. The delaney matter-white matter differentiation is intact. The size of the ventricular system is normal for age. There is no mass effect or midline shift. The calvarium is unremarkable. The orbits are unremarkable. The paranasal sinuses are unremarkable. The mastoid air cells are unremarkable. The soft tissues are unremarkable. IMPRESSION: Normal head CT. Please note that all CT scans at this facility use dose modulation, iterative reconstruction, and/or weight-based dosing when appropriate to reduce radiation dose to as low as reasonably achievable. Dictated by: Dhiraj Castillo MD @ 12/12/2017 05:30:28 (Electronic Signature) Report Signed by Proxy. [facility]
== END 2017-12-12 05:43 | disposition home or self-care (01) ==
LOC: MW.ED 04:06
DX: R51 Headache (principal)
CPT/HCPCS: 36415; 70450; 84703; 99284; A9270

== ENCOUNTER 2017-12-18 23:05 | Emergency (ER) | payer SELFPAY ==
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
[2017-12-19 00:22] LABS: CHLORIDE,CL 103 mmol/L (98-107); SODIUM,NA 140 mmol/L (136-145)
[2017-12-19 01:29] VITALS: BP 131/81
== END 2017-12-19 02:12 ==
LOC: MW.ED 23:05
DX: T48.1X2A Poisoning by skeletal muscle relaxants [neuromuscular blocking agents], intentional self-harm, initial encounter (principal); T43.592A Poisoning by other antipsychotics and neuroleptics, intentional self-harm, initial encounter; F32.9 Major depressive disorder, single episode, unspecified
CPT/HCPCS: 36415; 80053; 80305; 81001; 81025; 84443; 85025; 93005; 99285; G0480

== ENCOUNTER 2018-01-15 23:32 | Emergency (ER) | payer SELFPAY ==
--- NOTE | 2018-01-15 23:40 | EDM.PDOC ---
ED HPI GENERAL MEDICAL PROBLEM - General Stated Complaint: NECK STIFF AND CAN'T MOVE IT Time Seen by Provider: 01/15/18 23:39 Source of Information: Reports: Patient History Limitations: Reports: No Limitations - History of Present Illness INITIAL COMMENTS - FREE TEXT/NARRATIVE: HISTORY AND PHYSICAL: History of present illness: 22-year-old female presenting months department with chief complaint of neck pain 1 day Patient is well known to the emergency department and states that today she has been having neck pain. She was in [place] emergency room and they gave her cyclobenzaprine. She states that she has been taking the muscle relaxer but her neck was more this evening. She plans on following up with a masseuse on Wednesday. She currently denies any fever, chills, chest pain, palpitations, shortness breath, syncopal episodes, or focal neurologic deficits. Review of systems: As per history of present illness and below otherwise all systems reviewed and negative. Past medical history: As per history of present illness and as reviewed below otherwise noncontributory. Surgical history: As per history of present illness and as reviewed below otherwise noncontributory. Social history: No reported history of drug or alcohol abuse. Family history: As per history of present illness and as reviewed below otherwise noncontributory. Physical exam: HEENT: Atraumatic, normocephalic, pupils reactive, negative for conjunctival pallor or scleral icterus, mucous membranes moist, throat clear, neck supple, nontender, trachea midline. Lungs: Clear to auscultation, breath sounds equal bilaterally, chest nontender. Heart: S1S2, regular, negative for clicks, rubs, or JVD. Abdomen: Soft, nondistended, nontender. Negative for masses or hepatosplenomegaly. Negative for costovertebral tenderness. Pelvis: Stable nontender. Genitourinary: Deferred. Rectal: Deferred. Extremities: Atraumatic, negative for cords or calf pain. Neurovascular unremarkable. Neuro: Awake, alert, oriented. Cranial nerves II through XII unremarkable. Cerebellum unremarkable. Motor and sensory unremarkable throughout. Exam nonfocal. Diagnostics: [] Therapeutics: Tordol Impression: Neck strain Plan: Instructed patient to continue taking her cyclobenzaprine and follow-up with masseuse as well as ice muscle strain. She should follow-up with the primary care provider as we discussed. Definitive disposition and diagnosis as appropriate pending reevaluation and review of above. Neck Pain Score (Numeric/FACES): 9 - Related Data Allergies Allergy/AdvReac Type Severity Reaction Status Date / Time No Known Allergies Allergy Verified 01/15/18 23:45 Home Meds: Home Meds . [No Known Home Meds] 01/06/18 [History] Past Medical History - Past Health History Medical/Surgical History: Denies Medical/Surgical History HEENT History: Reports: None Cardiovascular History: Reports: None Respiratory History: Reports: None Gastrointestinal History: Reports: None Genitourinary History: Reports: None [employer] History: Reports: Musculoskeletal History: Reports: None Neurological History: Reports: None Psychiatric History: Reports: None Other Psychiatric History: post depression Endocrine/Metabolic History: Reports: Obesity/BMI 30+ Hematologic History: Reports: None Immunologic History: Reports: None Oncologic (Cancer) History: Reports: None Dermatologic History: Reports: None - Infectious Disease History Infectious Disease History: Reports: Chicken Pox - Past Surgical History Head Surgeries/Procedures: Reports: None Respiratory Surgical History: Reports: None Female Surgical History: Reports: None Social & Family History - Family History Family Medical History: Noncontributory Endocrine/Metabolic: Reports: Diabetes, Type I - Caffeine Use Caffeine Use: Reports: None ED ROS GENERAL - Review of Systems Review Of Systems: ROS reveals no pertinent complaints other than HPI. ED EXAM, GENERAL - Physical Exam Exam: See Below Course - Vital Signs Last Recorded V/S: Last Vital Signs Temp 98.5 F 01/15/18 23:42 Pulse 78 01/15/18 23:42 Resp 12 01/15/18 23:42 BP 152/87 H 01/15/18 23:42 Pulse Ox 96 01/15/18 23:42 - Orders/Labs/Meds Orders: Active Orders 24 hr Category Date Time Status Ketorolac [Toradol] Med 01/15/18 23:53 Once 60 mg IM ONETIME ONE Departure - Departure Time of Disposition: 23:56 Disposition: Home, Self-Care 01 Condition: Good Clinical Impression: Neck muscle strain Qualifiers: Encounter type: initial encounter Qualified Code(s): S16.1XXA - Strain of muscle, fascia and tendon at neck level, initial encounter - Discharge Information Referrals: PCP,None [Primary Care Provider] - Additional Instructions: My general discharge The following information is given to patients seen in the emergency department who are being discharged to home. This information is to outline your options for follow-up care. We provide all patients seen in our emergency department with a follow-up referral. The need for follow-up, as well as the timing and circumstances, are variable depending upon the specifics of your emergency department visit. If you don't have a primary care physician on staff, we will provide you with a referral. We always advise you to contact your personal physician following an emergency department visit to inform them of the circumstance of the visit and for follow-up with them and/or the need for any referrals to a consulting specialist. The emergency department will also refer you to a specialist when appropriate. This referral assures that you have the opportunity for follow-up care with a specialist. All of these measure are taken in an effort to provide you with optimal care, which includes your follow-up. Under all circumstances we always encourage you to contact your private physician who remains a resource for coordinating your care. When calling for follow-up care, please make the office aware that this follow-up is from your recent emergency room visit. If for any reason you are refused follow-up, please contact the [facility] Emergency Department at and asked to speak to the emergency department charge nurse. Follow-up with primary care provider. Take cyclobenzaprine as previously prescribed Return to emergency department if any new or worsening symptoms - My Orders Last 24 Hours: My Active Orders 01/15/18 23:53 Ketorolac [Toradol] 60 mg IM ONETIME ONE - Assessment/Plan Last 24 Hours: My Active Orders 01/15/18 23:53 Ketorolac [Toradol] 60 mg IM ONETIME ONE
[2018-01-15] MEDS ORDERED: Ketorolac 60 MG/2 ML SDV IM ONE (23:53)
[2018-01-16 00:19] VITALS: BP 138/95
== END 2018-01-16 00:19 | disposition home or self-care (01) ==
LOC: MW.ED 23:32
DX: S16.1XXA Strain of muscle, fascia and tendon at neck level, initial encounter (principal); E66.9 Obesity, unspecified; X58.XXXA Exposure to other specified factors, initial encounter
CPT/HCPCS: 96372; 99283; J1885; 99282

== ENCOUNTER 2019-05-26 11:24 | Emergency (ER) | payer SELFPAY ==
--- NOTE | 2019-05-26 11:54 | EDM.PDOC ---
ED HPI GENERAL MEDICAL PROBLEM - General Chief Complaint: ENT Problem Stated Complaint: SOB Time Seen by Provider: 05/26/19 11:25 Source of Information: Reports: Patient History Limitations: Reports: No Limitations - History of Present Illness INITIAL COMMENTS - FREE TEXT/NARRATIVE: This 23 year old female presents to the ED with her and son with a chief complaint of chest pressure for 60 prior to arrival to ED. She also complains of SOB with mild exertion. She denies any radiation of pain into her extremity, jaw or shoulders. She denies any nausea or vomiting. Onset: Today, Sudden (60 minutes) Duration: Hour(s): (one to two hours) Location: Reports: Chest. Denies: Abdomen, Back, Radiates to Quality: Reports: Pressure Severity: Moderate (mild to moderate) Improves with: Reports: Rest Worsens with: Reports: Movement Context: Reports: Activity Associated Symptoms: Reports: Chest Pain (no chest pain but complains of pressure "type chest pain". She feels that this is most likely a panic attack) . Denies: Cough, Diaphoresis, Fever/Chills, Headaches, Nausea/Vomiting - Related Data Allergies Allergy/AdvReac Type Severity Reaction Status Date / Time No Known Allergies Allergy Verified 05/26/19 11:28 Home Meds: Home Meds LORazepam [Ativan] 0.5 mg PO Q8HR PRN 5 Days #15 tablet MDD Not to exceed 3 in a day 05/26/19 [Rx] Potassium Citrate [Potassium Citrate ER] 15 meq PO ONETIME 1 Days #2 tablet.er 05/26/19 [Rx] Past Medical History - Past Health History Medical/Surgical History: Denies Medical/Surgical History HEENT History: Reports: None Cardiovascular History: Reports: None Respiratory History: Reports: None Gastrointestinal History: Reports: None Genitourinary History: Reports: None [employer] History: Reports: Musculoskeletal History: Reports: None Neurological History: Reports: None Psychiatric History: Reports: None Other Psychiatric History: post depression Endocrine/Metabolic History: Reports: Obesity/BMI 30+ Hematologic History: Reports: None Immunologic History: Reports: None Oncologic (Cancer) History: Reports: None Dermatologic History: Reports: None - Infectious Disease History Infectious Disease History: Reports: Chicken Pox - Past Surgical History Head Surgeries/Procedures: Reports: None Respiratory Surgical History: Reports: None Female Surgical History: Reports: None Social & Family History - Family History Family Medical History: Noncontributory Endocrine/Metabolic: Reports: Diabetes, Type I - Tobacco Use Smoking Status *Q: Current Some Day Smoker Years of Tobacco use: 2 Packs/Tins Daily: 0.1 - Caffeine Use Caffeine Use: Reports: None ED ROS GENERAL - Review of Systems Review Of Systems: See Below Constitutional: Reports: No Symptoms HEENT: Reports: No Symptoms Respiratory: Reports: Shortness of Breath (Mild to moderate.). Denies: Wheezing , Pleuritic Chest Pain, Cough Cardiovascular: Reports: Chest Pain (very mild but mainly pressure.), Lightheadedness (complains of lightheadness for 45 minutes). Denies: Dyspnea on Exertion, Edema, Orthopnea Endocrine: Reports: No Symptoms GI/Abdominal: Reports: No Symptoms : Reports: No Symptoms Musculoskeletal: Reports: No Symptoms Skin: Reports: No Symptoms Neurological: Reports: No Symptoms Psychiatric: Reports: No Symptoms Hematologic/Lymphatic: Reports: No Symptoms Immunologic: Reports: No Symptoms ED EXAM, GENERAL - Physical Exam Exam: See Below Exam Limited By: No Limitations General Appearance: Alert, WD/WN, No Apparent Distress, Anxious (Seems somewhat anxious.), Moderate Distress Eye Exam: Bilateral Eye: Normal Fundi, Normal Inspection, PERRL Ears: Normal External Exam, Normal Canal, Hearing Grossly Normal, Normal TMs Ear Exam: Bilateral Ear: Auricle Normal, Canal Normal, TM normal Nose: Normal Inspection, Normal Mucosa, No Blood Throat/Mouth: Normal Inspection, Normal Lips, Normal Teeth, Normal Gums, Normal Oropharynx, Normal Voice, No Airway Compromise Head: Atraumatic, Normocephalic Neck: Normal Inspection, Supple, Non-Tender, Full Range of Motion Respiratory/Chest: No Respiratory Distress, Lungs Clear, Normal Breath Sounds, No Accessory Muscle Use Cardiovascular: Normal Peripheral Pulses, Regular Rate, Rhythm, No Edema, No Gallop, No JVD, No Murmur, No Rub Peripheral Pulses: 3+: Carotid (L), Carotid (R), Brachial (L), Brachial (R), Popliteal (L), Popliteal (R), Dorsalis Pedis (L), Dorsalis Pedis (R) GI/Abdominal: Normal Bowel Sounds, Soft, Non-Tender, No Organomegaly, No Distention, No Abnormal Bruit, No Mass, Other (but is obese) Back Exam: Normal Inspection, Full Range of Motion, NT Extremities: Normal Inspection, Normal Range of Motion, Non-Tender, Normal Capillary Refill, No Pedal Edema Neurological: Alert, Oriented, CN II-XII Intact, Normal Cognition, Normal Gait, Normal Reflexes, No Motor/Sensory Deficits Psychiatric: Normal Affect, Normal Mood Skin Exam: Warm, Dry, Intact, Normal Color, No Rash Lymphatic: No Adenopathy Course - Vital Signs Last Recorded V/S: Last Vital Signs Temp 96.9 F 05/26/19 11:25 Pulse 76 05/26/19 13:36 Resp 16 05/26/19 13:36 BP 126/76 05/26/19 13:36 Pulse Ox 100 05/26/19 13:36 - Orders/Labs/Meds Orders: Active Orders 24 hr Category Date Time Status EKG 12 Lead [EKG Documentation Completion] [RC] STAT Care 05/26/19 12:26 Active Sodium Chloride 0.9% [Normal Saline] 1,000 ml Med 05/26/19 12:15 Active IV ASDIRECTED Sodium Chloride 0.9% [Saline Flush] Med 05/26/19 12:03 Active 10 ml FLUSH ASDIRECTED PRN Sodium Chloride 0.9% [Saline Flush] Med 05/26/19 12:03 Active 2.5 ml FLUSH ASDIRECTED PRN Saline Lock Insert [OM.PC] Stat Oth 05/26/19 12:03 Ordered Medication Orders Sodium Chloride (Normal Saline) 1,000 mls @ 75 mls/hr IV ASDIRECTED [facility] Last Admin: 05/26/19 12:35 Dose: 75 mls/hr Sodium Chloride (Saline Flush) 10 ml FLUSH ASDIRECTED PRN PRN Reason: Keep Vein Open Sodium Chloride (Saline Flush) 2.5 ml FLUSH ASDIRECTED PRN PRN Reason: Keep Vein Open Labs: Laboratory Tests 05/26/19 05/26/19 05/26/19 Range/Units 11:30 11:30 11:30 WBC 11.80 H (4.0-11.0) K/uL RBC 5.10 (4.30-5.90) M/uL Hgb 14.9 (12.0-16.0) g/dL Hct 45.0 (36.0-46.0) % MCV 88.2 (80.0-98.0) fL MCH 29.2 (27.0-32.0) pg MCHC 33.1 (31.0-37.0) g/dL RDW Std Deviation 45.6 (28.0-62.0) fl RDW Coeff of Fiona 14 (11.0-15.0) % Plt Count 230 (150-400) K/uL MPV 12.70 H (7.40-12.00) fL Neut % (Auto) 68.6 (48.0-80.0) % Lymph % (Auto) 23.8 (16.0-40.0) % [place] % (Auto) 6.8 (0.0-15.0) % Eos % (Auto) 0.6 (0.0-7.0) % Baso % (Auto) 0.2 (0.0-1.5) % Neut # (Auto) 8.1 H (1.4-5.7) K/uL Lymph # (Auto) 2.8 H (0.6-2.4) K/uL [place] # (Auto) 0.8 (0.0-0.8) K/uL Eos # (Auto) 0.1 (0.0-0.7) K/uL Baso # (Auto) 0.0 (0.0-0.1) K/uL Nucleated RBC % 0.0 /100WBC Nucleated RBCs # 0 K/uL Sodium 140 (136-145) mmol/L Potassium 3.2 L (3.5-5.1) mmol/L Chloride 103 (98-107) mmol/L Carbon Dioxide 23.1 (21.0-32.0) mmol/L BUN 14 (7.0-18.0) mg/dL Creatinine 0.8 (0.6-1.0) mg/dL Est Cr Clr Drug Dosing 110.33 mL/min Estimated GFR (MDRD) > 60.0 ml/min Glucose 87 (74-106) mg/dL Calcium 9.6 (8.5-10.1) mg/dL Total Bilirubin 0.8 (0.2-1.0) mg/dL AST 15 (15-37) IU/L ALT 28 (14-63) IU/L Alkaline Phosphatase 101 (46-116) U/L Troponin I < 0.050 (0.000-0.056) ng/mL B-Natriuretic Peptide 4 (<100) PG/ML Total Protein 8.7 H (6.4-8.2) g/dL Albumin 4.6 (3.4-5.0) g/dL Globulin 4.1 H (2.6-4.0) g/dL Albumin/Globulin Ratio 1.1 (0.9-1.6) 05/26/19 Range/Units 13:47 WBC (4.0-11.0) K/uL RBC (4.30-5.90) M/uL Hgb (12.0-16.0) g/dL Hct (36.0-46.0) % MCV (80.0-98.0) fL MCH (27.0-32.0) pg MCHC (31.0-37.0) g/dL RDW Std Deviation (28.0-62.0) fl RDW Coeff of Finoa (11.0-15.0) % Plt Count (150-400) K/uL MPV (7.40-12.00) fL Neut % (Auto) (48.0-80.0) % Lymph % (Auto) (16.0-40.0) % [place] % (Auto) (0.0-15.0) % Eos % (Auto) (0.0-7.0) % Baso % (Auto) (0.0-1.5) % Neut # (Auto) (1.4-5.7) K/uL Lymph # (Auto) (0.6-2.4) K/uL [place] # (Auto) (0.0-0.8) K/uL Eos # (Auto) (0.0-0.7) K/uL Baso # (Auto) (0.0-0.1) K/uL Nucleated RBC % /100WBC Nucleated RBCs # K/uL Sodium (136-145) mmol/L Potassium (3.5-5.1) mmol/L Chloride (98-107) mmol/L Carbon Dioxide (21.0-32.0) mmol/L BUN (7.0-18.0) mg/dL Creatinine (0.6-1.0) mg/dL Est Cr Clr Drug Dosing mL/min Estimated GFR (MDRD) ml/min Glucose (74-106) mg/dL Calcium (8.5-10.1) mg/dL Total Bilirubin (0.2-1.0) mg/dL AST (15-37) IU/L ALT (14-63) IU/L Alkaline Phosphatase (46-116) U/L Troponin I < 0.050 (0.000-0.056) ng/mL B-Natriuretic Peptide (<100) PG/ML Total Protein (6.4-8.2) g/dL Albumin (3.4-5.0) g/dL Globulin (2.6-4.0) g/dL Albumin/Globulin Ratio (0.9-1.6) Meds: Medications Generic Name Dose Route Start Last Admin Trade Name Freq PRN Reason Stop Dose Admin Sodium Chloride 1,000 mls @ 75 mls/hr 05/26/19 12:15 05/26/19 12:35 Normal Saline IV 75 mls/hr ASDIRECTED BABAK Administration Sodium Chloride 10 ml 05/26/19 12:03 Saline Flush FLUSH ASDIRECTED PRN Keep Vein Open Sodium Chloride 2.5 ml 05/26/19 12:03 Saline Flush FLUSH ASDIRECTED PRN Keep Vein Open Discontinued Medications Generic Name Dose Route Start Last Admin Trade Name Freq PRN Reason Stop Dose Admin Lorazepam 0.5 mg 05/26/19 12:08 05/26/19 12:38 Ativan PO 05/26/19 12:09 Not Given ONETIME ONE Lorazepam 0.5 mg 05/26/19 12:26 05/26/19 12:35 Ativan PO 05/26/19 12:27 0.5 mg ONETIME ONE Administration Ondansetron HCl 4 mg 05/26/19 12:32 05/26/19 12:35 Zofran IVPUSH 05/26/19 12:33 4 mg ONETIME ONE Administration - Radiology Interpretation Free Text/Narrative:: MDM: The patient HEART score is a: 1. Departure - Departure Time of Disposition: 14:51 Disposition: Home, Self-Care 01 Condition: Good Clinical Impression: Anxiety, Non-cardiac chest pain - Discharge Information *PRESCRIPTION DRUG MONITORING PROGRAM REVIEWED*: Yes *COPY OF PRESCRIPTION DRUG MONITORING REPORT IN PATIENT JULIANNE: Yes Prescriptions: Potassium Citrate [Potassium Citrate ER] 15 meq PO ONETIME 1 Days #2 tablet.er Instructions: Nonspecific Chest Pain, [id number], Living With Anxiety Referrals: PCP,None [Primary Care Provider] - Forms: ED Department Discharge Additional Instructions: Take all medications as directed. Rest for the next 24 hours. Follow up with your PCP in the next thee to four days. Return to the ED if your condition gets worse or if you had any other concerns. Happy Holidays to you and your family. Sepsis Event Note - Evaluation Sepsis Screening Result: No Definite Risk - Focused Exam Vital Signs: Vital Signs Temp Pulse Resp BP Pulse Ox 05/26/19 13:36 76 16 126/76 100 05/26/19 11:25 96.9 F 104 H 20 141/87 H 99 Date Exam was Performed: 05/26/19 Time Exam was Performed: 14:51 - My Orders Last 24 Hours: My Active Orders 05/26/19 12:03 Sodium Chloride 0.9% [Saline Flush] 10 ml FLUSH ASDIRECTED PRN Sodium Chloride 0.9% [Saline Flush] 2.5 ml FLUSH ASDIRECTED PRN Saline Lock Insert [OM.PC] Stat 05/26/19 12:15 Sodium Chloride 0.9% [Normal Saline] 1,000 ml IV ASDIRECTED 05/26/19 12:26 EKG 12 Lead [EKG Documentation Completion] [RC] STAT - Assessment/Plan Last 24 Hours: My Active Orders 05/26/19 12:03 Sodium Chloride 0.9% [Saline Flush] 10 ml FLUSH ASDIRECTED PRN Sodium Chloride 0.9% [Saline Flush] 2.5 ml FLUSH ASDIRECTED PRN Saline Lock Insert [OM.PC] Stat 05/26/19 12:15 Sodium Chloride 0.9% [Normal Saline] 1,000 ml IV ASDIRECTED 05/26/19 12:26 EKG 12 Lead [EKG Documentation Completion] [RC] STAT
[2019-05-26] MEDS ORDERED: Sodium Chloride 0.9% 10 ML Syringe FLUSH PRN (12:03)
[2019-05-26] MEDS ORDERED: Sodium Chloride 0.9% 2.5 ML Syringe FLUSH PRN (12:03)
[2019-05-26] MEDS ORDERED: LORazepam 0.5 MG Tab PO ONE ×2 (12:08→12:26)
[2019-05-26] MEDS ORDERED: Sodium Chloride 0.9% 1,000 ML IV SCH (12:15)
[2019-05-26] MEDS ORDERED: Ondansetron 4 MG/2 ML SDV IVPUSH ONE (12:32)
[2019-05-26 13:02] LABS: BLOOD UREA NITROGEN,BUN 14 mg/dL (7.0-18.0); CARBON DIOXIDE,CO2 23.1 mmol/L (21.0-32.0); CHLORIDE,CL 103 mmol/L (98-107); GLUCOSE RANDOM 87 mg/dL (74-106); POTASSIUM,K 3.2 mmol/L (3.5-5.1); SODIUM,NA 140 mmol/L (136-145)
--- NOTE | 2019-05-26 13:10 | CR ---
Chest: 2 views of the chest were obtained. Comparison: No previous chest x-ray is available. Heart size and mediastinum are normal. Lungs are clear with no acute parenchymal change. Bony structures appear within normal limits. Impression: 1. Nothing acute is seen on 2 view chest x-ray. Diagnostic code #1 This report was dictated in [place] Standard Time
[2019-05-26 13:37] VITALS: BP 126/76
[2019-05-26 15:27] VITALS: PULSE 72
== END 2019-05-26 15:05 | disposition home or self-care (01) ==
LOC: MW.ED 11:24
DX: R07.89 Other chest pain (principal); F41.9 Anxiety disorder, unspecified; F17.210 Nicotine dependence, cigarettes, uncomplicated; Z79.899 Other long term (current) drug therapy
CPT/HCPCS: 36415; 71046; 80053; 83880; 84484; 85025; 96361; 96374; 99285; A9270; J2405; J7030

== ENCOUNTER 2019-05-31 19:20 | Emergency (ER) | payer SELFPAY ==
--- NOTE | 2019-05-31 19:59 | EDM.PDOC ---
ED HPI GENERAL MEDICAL PROBLEM - General Chief Complaint: General Stated Complaint: TROUBLE BREATHING Time Seen by Provider: 05/31/19 19:54 Source of Information: Reports: Patient, RN Notes Reviewed History Limitations: Reports: No Limitations - History of Present Illness INITIAL COMMENTS - FREE TEXT/NARRATIVE: 23-year-old female complaining of multiple vague complaints from her head to her abdomen. Patient states she is short of breath since Wednesday and has abdominal cramps and back pain. Patient denies being denies fever and chills. Patient was recently in the room showing normal CBC and potassium that was 3.2. Otherwise normal labs. We will repeat CBC and obtain a chest x-ray on this patient. We will also do a and a UA on this patient Onset: Gradual Duration: Day(s): (5), Getting Worse Location: Reports: Chest, Abdomen Quality: Reports: Pressure, Other Severity: Mild Improves with: Reports: None Worsens with: Reports: None Associated Symptoms: Reports: Shortness of Breath, Weakness Abdomen Pain Score (Numeric/FACES): 8 - Related Data Allergies Allergy/AdvReac Type Severity Reaction Status Date / Time No Known Allergies Allergy Verified 05/31/19 19:36 Home Meds: Home Meds LORazepam [Ativan] 0.5 mg PO Q8HR PRN 5 Days #15 tablet MDD Not to exceed 3 in a day 05/26/19 [Rx] Potassium Citrate [Potassium Citrate ER] 15 meq PO ONETIME 1 Days #2 tablet.er 05/26/19 [Rx] Past Medical History - Past Health History Medical/Surgical History: Denies Medical/Surgical History HEENT History: Reports: None Cardiovascular History: Reports: None Respiratory History: Reports: None Gastrointestinal History: Reports: None Genitourinary History: Reports: None 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: Musculoskeletal History: Reports: None Neurological History: Reports: None Psychiatric History: Reports: Anxiety Other Psychiatric History: post depression Endocrine/Metabolic History: Reports: Obesity/BMI 30+ Hematologic History: Reports: None Immunologic History: Reports: None Oncologic (Cancer) History: Reports: None Dermatologic History: Reports: None - Infectious Disease History Infectious Disease History: Reports: Chicken Pox - Past Surgical History Head Surgeries/Procedures: Reports: None Respiratory Surgical History: Reports: None Female Surgical History: Reports: None Social & Family History - Family History Family Medical History: Noncontributory Endocrine/Metabolic: Reports: Diabetes, Type I - Tobacco Use Smoking Status *Q: Current Every Day Smoker Years of Tobacco use: 3 Packs/Tins Daily: 0.2 - Caffeine Use Caffeine Use: Reports: Coffee - Recreational Drug Use Recreational Drug Use: Yes Recreational Drug Type: Reports: Marijuana/Hashish Recreational Drug Use Frequency: Monthly ED ROS GENERAL - Review of Systems Review Of Systems: See Below Constitutional: Reports: Weakness, Fatigue HEENT: Reports: No Symptoms Respiratory: Reports: Shortness of Breath Cardiovascular: Reports: No Symptoms Endocrine: Reports: No Symptoms GI/Abdominal: Reports: Abdominal Pain : Reports: No Symptoms Musculoskeletal: Reports: No Symptoms Skin: Reports: No Symptoms Neurological: Reports: Weakness Psychiatric: Reports: Anxiety Hematologic/Lymphatic: Reports: No Symptoms Immunologic: Reports: No Symptoms ED EXAM, GENERAL - Physical Exam Exam: See Below Free Text/Narrative:: 23-year-old female presents emergency room chief complaint shortness of breath and abdominal pain. This exam reveals normal chest normal abdomen negative flank tenderness. I will obtain lab work to collaborate with physical exam at this time. Exam Limited By: No Limitations General Appearance: Alert, WD/WN, No Apparent Distress, Anxious Eye Exam: Bilateral Eye: Normal Fundi, Normal Inspection Ears: Normal External Exam, Normal Canal, Hearing Grossly Normal, Normal TMs Nose: Normal Inspection, Normal Mucosa, No Blood Throat/Mouth: Normal Inspection, Normal Lips, Normal Teeth Head: Atraumatic, Normocephalic Neck: Normal Inspection, Supple, Non-Tender, Full Range of Motion Respiratory/Chest: No Respiratory Distress, Lungs Clear, Normal Breath Sounds, No Accessory Muscle Use, Chest Non-Tender Cardiovascular: Normal Peripheral Pulses, Regular Rate, Rhythm, No Edema, No JVD , No Murmur, No Rub GI/Abdominal: Normal Bowel Sounds, Soft, Non-Tender, No Organomegaly, No Distention, No Abnormal Bruit, No Mass Extremities: Normal Inspection, Normal Range of Motion, No Pedal Edema, Normal Capillary Refill Neurological: Alert, CN II-XII Intact, Normal Cognition Psychiatric: Normal Affect, Normal Mood Skin Exam: Warm, Dry, Intact, Normal Color, No Rash Lymphatic: No Adenopathy Course - Vital Signs Last Recorded V/S: Last Vital Signs Temp 97.5 F 05/31/19 19:32 Pulse 96 05/31/19 19:32 Resp 16 05/31/19 19:32 BP 140/90 05/31/19 19:32 Pulse Ox 100 05/31/19 19:32 Patient has normal labs. Negative test and normal urine. Patient will be discharged home with diagnosis of anxiety. - Orders/Labs/Meds Labs: Laboratory Tests 05/31/19 05/31/19 05/31/19 Range/Units 19:29 19:29 20:03 WBC 9.21 (4.0-11.0) K/uL RBC 4.74 (4.30-5.90) M/uL Hgb 13.9 (12.0-16.0) g/dL Hct 41.6 (36.0-46.0) % MCV 87.8 (80.0-98.0) fL MCH 29.3 (27.0-32.0) pg MCHC 33.4 (31.0-37.0) g/dL RDW Std Deviation 44.6 (28.0-62.0) fl RDW Coeff of Fiona 14 (11.0-15.0) % Plt Count 203 (150-400) K/uL MPV 12.10 H (7.40-12.00) fL Neut % (Auto) 58.7 (48.0-80.0) % Lymph % (Auto) 35.0 (16.0-40.0) % [place] % (Auto) 5.1 (0.0-15.0) % Eos % (Auto) 1.0 (0.0-7.0) % Baso % (Auto) 0.2 (0.0-1.5) % Neut # (Auto) 5.4 (1.4-5.7) K/uL Lymph # (Auto) 3.2 H (0.6-2.4) K/uL [place] # (Auto) 0.5 (0.0-0.8) K/uL Eos # (Auto) 0.1 (0.0-0.7) K/uL Baso # (Auto) 0.0 (0.0-0.1) K/uL Nucleated RBC % 0.0 /100WBC Nucleated RBCs # 0 K/uL Urine Color YELLOW Urine Appearance CLEAR Urine pH 6.5 (5.0-8.0) Ur Specific [place] 1.015 (1.001-1.035) Urine Protein NEGATIVE (NEGATIVE) mg/dL Urine Glucose (UA) NEGATIVE (NEGATIVE) mg/dL Urine Ketones 15 H (NEGATIVE) mg/dL Urine Occult Blood NEGATIVE (NEGATIVE) Urine Nitrite NEGATIVE (NEGATIVE) Urine Bilirubin NEGATIVE (NEGATIVE) Urine Urobilinogen 0.2 (<2.0) EU/dL Ur Leukocyte Esterase NEGATIVE (NEGATIVE) Urine HCG, Qual NEGATIVE (NEGATIVE) Departure - Departure Time of Disposition: 21:06 Disposition: Home, Self-Care 01 Clinical Impression: Viral syndrome - Discharge Information Instructions: Viral Illness, Adult Referrals: PCP,None [Primary Care Provider] - Forms: ED Department Discharge Sepsis Event Note - Evaluation Sepsis Screening Result: No Definite Risk - Focused Exam Vital Signs: Vital Signs Temp Pulse Resp BP Pulse Ox 05/31/19 19:32 97.5 F 96 16 140/90 100 Date Exam was Performed: 05/31/19 Time Exam was Performed: 21:05
[2019-05-31 21:26] VITALS: BP 132/94; PULSE 80
== END 2019-05-31 21:20 | disposition home or self-care (01) ==
LOC: MW.ED 19:20
DX: B34.9 Viral infection, unspecified (principal); F17.210 Nicotine dependence, cigarettes, uncomplicated
CPT/HCPCS: 36415; 81003; 81025; 85025; 87804; 99283; 99285

== ENCOUNTER 2019-06-04 20:38 | Emergency (ER) | payer SELFPAY ==
[2019-06-04 20:59] VITALS: BP 135/90; PULSE 75
--- NOTE | 2019-06-04 21:56 | EDM.PDOC ---
ED HPI GENERAL MEDICAL PROBLEM - General Chief Complaint: General Stated Complaint: SOB Time Seen by Provider: 06/04/19 21:31 Source of Information: Reports: Patient History Limitations: Reports: No Limitations - History of Present Illness INITIAL COMMENTS - FREE TEXT/NARRATIVE: Presents reporting urinary urgency, frequency, right mid-back pain and mild nausea. She states that when she has bladder spasms she gets nauseated and a little light-headed. Otherwise healthy without medical problems. LMP one week ago. No vaginal symptoms. Generalized Pain Score (Numeric/FACES): 5 - Related Data Allergies Allergy/AdvReac Type Severity Reaction Status Date / Time No Known Allergies Allergy Verified 06/21/19 04:51 Home Meds: Home Meds LORazepam [Ativan] 0.5 mg PO Q8HR PRN 5 Days #15 tablet MDD Not to exceed 3 in a day 05/26/19 [Rx] Omeprazole Magnesium [Prilosec Otc] 20 mg PO DAILY 06/21/19 [History] Past Medical History - Past Health History Medical/Surgical History: Denies Medical/Surgical History HEENT History: Reports: None Cardiovascular History: Reports: None Respiratory History: Reports: None Gastrointestinal History: Reports: None Genitourinary History: Reports: None 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: Musculoskeletal History: Reports: None Neurological History: Reports: None Psychiatric History: Reports: Anxiety Other Psychiatric History: post depression Endocrine/Metabolic History: Reports: Obesity/BMI 30+ Hematologic History: Reports: None Immunologic History: Reports: None Oncologic (Cancer) History: Reports: None Dermatologic History: Reports: None - Infectious Disease History Infectious Disease History: Reports: None - Past Surgical History Head Surgeries/Procedures: Reports: None Respiratory Surgical History: Reports: None Female Surgical History: Reports: None Social & Family History - Family History Family Medical History: Noncontributory Endocrine/Metabolic: Reports: Diabetes, Type I - Tobacco Use Smoking Status *Q: Never Smoker Second Hand Smoke Exposure: No - Caffeine Use Caffeine Use: Reports: None - Recreational Drug Use Recreational Drug Use: No ED ROS GENERAL - Review of Systems Review Of Systems: Comprehensive ROS is negative, except as noted in HPI. ED EXAM, GENERAL - Physical Exam Exam: See Below Exam Limited By: No Limitations General Appearance: Alert, No Apparent Distress Ears: Normal External Exam Nose: Normal Inspection Throat/Mouth: Normal Inspection Head: Atraumatic, Normocephalic Neck: Normal Inspection Respiratory/Chest: No Respiratory Distress, Lungs Clear, Normal Breath Sounds Cardiovascular: Normal Peripheral Pulses, Regular Rate, Rhythm, No Murmur GI/Abdominal: Soft, Non-Tender, No Distention Back Exam: CVA Tenderness (R) Neurological: Alert, Oriented Psychiatric: Normal Affect, Normal Mood Skin Exam: Warm, Dry, Intact, Normal Color, No Rash Course - Vital Signs Last Recorded V/S: Last Vital Signs Temp 36.3 C 06/04/19 20:56 Pulse 75 06/04/19 20:56 Resp 16 06/04/19 20:56 BP 135/90 06/04/19 20:56 Pulse Ox 95 06/04/19 20:56 - Orders/Labs/Meds Labs: Laboratory Tests 06/04/19 Range/Units 21:45 Urine Color YELLOW Urine Appearance SLT CLOUDY Urine pH 5.5 (5.0-8.0) Ur Specific [place] 1.010 (1.001-1.035) Urine Protein NEGATIVE (NEGATIVE) mg/dL Urine Glucose (UA) NEGATIVE (NEGATIVE) mg/dL Urine Ketones >=80 (NEGATIVE) mg/dL Urine Occult Blood NEGATIVE (NEGATIVE) Urine Nitrite NEGATIVE (NEGATIVE) Urine Bilirubin NEGATIVE (NEGATIVE) Urine Urobilinogen 0.2 (<2.0) EU/dL Ur Leukocyte Esterase NEGATIVE (NEGATIVE) Urine RBC 0-1 (0-2/HPF) Urine WBC 0-1 (0-5/HPF) Ur Epithelial Cells RARE (NONE-FEW) Urine Bacteria FEW (NEGATIVE) Departure - Departure Time of Disposition: 20:56 Disposition: Home, Self-Care 01 Clinical Impression: Pelvic pain - Discharge Information Referrals: PCP,None [Primary Care Provider] - Forms: ED Department Discharge Sepsis Event Note - Evaluation Sepsis Screening Result: No Definite Risk - Focused Exam Date Exam was Performed: 08/01/19 Time Exam was Performed: 22:07
== END 2019-06-04 22:31 | disposition home or self-care (01) ==
LOC: MW.ED 20:38
DX: R10.2 Pelvic and perineal pain (principal); E66.9 Obesity, unspecified; Z79.899 Other long term (current) drug therapy
CPT/HCPCS: 81001; 99283

== ENCOUNTER 2019-06-04 22:43 | Emergency (ER) | payer SELFPAY ==
--- NOTE | 2019-06-05 02:31 | EDM.PDOC ---
ED HPI GENERAL MEDICAL PROBLEM - General Chief Complaint: ENT Problem Stated Complaint: TROUBLE BREATHING Time Seen by Provider: 06/04/19 23:50 Source of Information: Reports: Patient, Custodial Records History Limitations: Reports: No Limitations - History of Present Illness INITIAL COMMENTS - FREE TEXT/NARRATIVE: This patient's second visit to date for initially complaining of back pain now she complains of throat pain. Her initial urine was negative. Patient is now stating she has throat pain and difficulty breathing. However oxygenation is 100% and her throat does not appear red. Appears to be in no distress Onset: Today Duration: Day(s):, Waxing/Waning Location: Reports: Head, Back Quality: Reports: Ache Severity: Mild Improves with: Reports: None Worsens with: Reports: None Associated Symptoms: Reports: No Other Symptoms throat Pain Score (Numeric/FACES): 7 - Related Data Allergies Allergy/AdvReac Type Severity Reaction Status Date / Time No Known Allergies Allergy Verified 06/04/19 23:05 Home Meds: Home Meds LORazepam [Ativan] 0.5 mg PO Q8HR PRN 5 Days #15 tablet MDD Not to exceed 3 in a day 05/26/19 [Rx] Potassium Citrate [Potassium Citrate ER] 15 meq PO ONETIME 1 Days #2 tablet.er 05/26/19 [Rx] Past Medical History - Past Health History Medical/Surgical History: Denies Medical/Surgical History HEENT History: Reports: None Cardiovascular History: Reports: None Respiratory History: Reports: None Gastrointestinal History: Reports: None Genitourinary History: Reports: None 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: Musculoskeletal History: Reports: None Neurological History: Reports: None Psychiatric History: Reports: Anxiety Other Psychiatric History: post depression Endocrine/Metabolic History: Reports: Obesity/BMI 30+ Insulin Pump Model 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 Medical 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: None Hematologic History: Reports: None Immunologic History: Reports: None Oncologic (Cancer) History: Reports: None Dermatologic History: Reports: None - Infectious Disease History Infectious Disease History: Reports: None - Past Surgical History Head Surgeries/Procedures: Reports: None Respiratory Surgical History: Reports: None Female Surgical History: Reports: None Social & Family History - Family History Family Medical History: Noncontributory Endocrine/Metabolic: Reports: Diabetes, Type I - Tobacco Use Smoking Status *Q: Never Smoker - Caffeine Use Caffeine Use: Reports: None - Recreational Drug Use Recreational Drug Use: No ED ROS ENT - Review of Systems Review Of Systems: Comprehensive ROS is negative, except as noted in HPI. Constitutional: Reports: No Symptoms HEENT: Reports: Throat Pain. Denies: Contact Lenses, Dental Pain, Eye Discharge , Eye Pain, Glasses, Rhinitis, Sinus Problem, Vertigo, Vision Change Respiratory: Reports: No Symptoms Cardiovascular: Reports: No Symptoms Endocrine: Reports: No Symptoms GI/Abdominal: Reports: No Symptoms : Reports: No Symptoms Musculoskeletal: Reports: Back Pain Skin: Reports: No Symptoms Neurological: Reports: No Symptoms Psychiatric: Reports: No Symptoms Immunologic: Reports: No Symptoms ED EXAM, ENT - Physical Exam Exam: See Below Exam Limited By: No Limitations General Appearance: Alert, WD/WN, No Apparent Distress Eye Exam: Bilateral Eye: Normal Fundi, Normal Inspection Ears: Normal External Exam, Normal Canal, Hearing Grossly Normal, Normal TMs Nose: Normal Inspection, Normal Mucousa, No Blood Mouth/Throat: Normal Inspection, Normal Gums, Normal Lips, Normal Oropharynx, Normal Teeth Head: Atraumatic, Normocephalic Neck: Normal Inspection, Supple, Non-Tender Respiratory/Chest: No Respiratory Distress, Lungs Clear, Normal Breath Sounds, No Accessory Muscle Use Cardiovascular: Normal Peripheral Pulses, Regular Rate, Rhythm Rectal (Female) Exam: Deferred Back: Normal Inspection Extremities: Normal Inspection Neurological: Alert, Oriented, CN II-XII Intact Skin: Warm, Dry, Intact, Normal Color Course - Vital Signs Last Recorded V/S: Last Vital Signs Temp 96.8 F 06/04/19 23:05 Pulse 71 06/05/19 00:50 Resp 16 06/05/19 00:50 BP 143/93 H 06/05/19 00:50 Pulse Ox 98 06/05/19 00:50 - Orders/Labs/Meds Orders: Active Orders 24 hr Category Date Time Status CULTURE STREP A CONFIRMATION [] Stat Lab 06/04/19 23:56 Results STREP SCRN A RAPID W CULT CONF [] Stat Lab 06/04/19 23:56 Results Departure - Departure Time of Disposition: 02:30 Disposition: Home, Self-Care 01 Condition: Good Clinical Impression: Viral syndrome - Discharge Information Referrals: PCP,None [Primary Care Provider] - Sepsis Event Note - Evaluation Sepsis Screening Result: No Definite Risk - Focused Exam Vital Signs: Vital Signs Temp Pulse Resp BP Pulse Ox 06/05/19 00:50 71 16 143/93 H 98 06/04/19 23:05 96.8 F 75 18 142/79 H 98 Date Exam was Performed: 06/05/19 Time Exam was Performed: 02:26 - My Orders Last 24 Hours: My Active Orders 06/04/19 23:56 CULTURE STREP A CONFIRMATION [RM] Stat STREP SCRN A RAPID W CULT CONF [RM] Stat - Assessment/Plan Last 24 Hours: My Active Orders 06/04/19 23:56 CULTURE STREP A CONFIRMATION [RM] Stat STREP SCRN A RAPID W CULT CONF [RM] Stat
[2019-06-05 02:32] VITALS: BP 120/85; PULSE 84
== END 2019-06-05 02:36 | disposition home or self-care (01) ==
LOC: MW.ED 22:43
DX: B34.9 Viral infection, unspecified (principal); F41.9 Anxiety disorder, unspecified; E66.9 Obesity, unspecified; Z68.41 Body mass index [BMI] 40.0-44.9, adult
CPT/HCPCS: 87081; 87880-QW; 99282; 99283

== ENCOUNTER 2019-06-11 16:33 | Emergency (ER) | payer SELFPAY ==
[2019-06-11 17:02] VITALS: BP 132/91; PULSE 90
--- NOTE | 2019-06-11 17:31 | EDM.PDOC ---
ED HPI GENERAL MEDICAL PROBLEM - General Chief Complaint: Gastrointestinal Problem Stated Complaint: CONSTIPATED Time Seen by Provider: 06/11/19 16:36 Source of Information: Reports: Patient History Limitations: Reports: No Limitations - History of Present Illness INITIAL COMMENTS - FREE TEXT/NARRATIVE: HISTORY AND PHYSICAL: History of present illness: Patient is a 23-year-old female who presents to the ED today with concern of not having a bowel movement over the last 4 days. Patient states she feels like she can have a bowel movement when she goes to push it does not come out. Patient states she has taken milk of magnesia once without relief of symptoms. Patient states other than she has not had a bowel movement she is not having any symptoms or any abdominal pain. Patient denies fever, chills, chest pain, shortness of breath, or cough. Denies headache, neck stiff ness, change in vision, syncope, or near syncope. Denies nausea, vomiting, abdominal pain, or dysuria. Has not noted any blood in urine or stool. Patient has been eating and drinking appropriately. Review of systems: As per history of present illness and below otherwise all systems reviewed and negative. Past medical history: As per history of present illness and as reviewed below otherwise noncontributory. Surgical history: As per history of present illness and as reviewed below otherwise noncontributory. Social history: See social history for further information Family history: As per history of present illness and as reviewed below otherwise noncontributory. Physical exam: General: Patient is alert, oriented, and in no acute distress. Patient sitting comfortably on exam table. HEENT: Atraumatic, normocephalic, pupils equal and reactive bilaterally, negative for conjunctival pallor or scleral icterus, mucous membranes moist, TMs normal bilaterally, throat clear, neck supple, nontender, trachea midline. No drooling or trismus noted. No meningeal signs. No hot potato voice noted. Lungs: Clear to auscultation, breath sounds equal bilaterally, chest nontender. Heart: S1S2, regular rate and rhythm without overt murmur Abdomen: Soft, nondistended, nontender. Negative for masses or hepatosplenomegaly. Negative for costovertebral tenderness. Pelvis: Stable nontender. Genitourinary: Deferred. Rectal: Deferred. Skin: Intact, warm, dry. No lesions or rashes noted. Extremities: Atraumatic, negative for cords or calf pain. Neurovascular unremarkable. Neuro: Awake, alert, oriented. Cranial nerves II through XII unremarkable. Cerebellum unremarkable. Motor and sensory unremarkable throughout. Exam nonfocal. Notes: Discussed importance for follow-up with a primary care provider. Voices understanding and is agreeable to plan of care. Denies any further questions or concerns at this time. Diagnostics: Offered labwork and KUB but patient declines all diagnostics Therapeutics: Offered suppository but patient declines Prescription: None Impression: Constipation Plan: 1. Use [id number] glycerin suppositories and MiraLAX [id number] as directed for constipation. 2. Follow-up with your primary care provider as discussed. Return to the ED as needed and as discussed. Definitive disposition and diagnosis as appropriate pending reevaluation and review of above. abdominal Pain Score (Numeric/FACES): 6 - Related Data Allergies Allergy/AdvReac Type Severity Reaction Status Date / Time No Known Allergies Allergy Verified 06/11/19 16:59 Home Meds: Home Meds LORazepam [Ativan] 0.5 mg PO Q8HR PRN 5 Days #15 tablet MDD Not to exceed 3 in a day 05/26/19 [Rx] Potassium Citrate [Potassium Citrate ER] 15 meq PO ONETIME 1 Days #2 tablet.er 05/26/19 [Rx] Past Medical History - Past Health History Medical/Surgical History: Denies Medical/Surgical History HEENT History: Reports: None Cardiovascular History: Reports: None Respiratory History: Reports: None Gastrointestinal History: Reports: None Genitourinary History: Reports: None 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: Musculoskeletal History: Reports: None Neurological History: Reports: None Psychiatric History: Reports: Anxiety Other Psychiatric History: post depression Endocrine/Metabolic History: Reports: Obesity/BMI 30+ Insulin Pump Model and Historian Dramatic Arts: None Hematologic History: Reports: None Immunologic History: Reports: None Oncologic (Cancer) History: Reports: None Dermatologic History: Reports: None - Infectious Disease History Infectious Disease History: Reports: None - Past Surgical History Head Surgeries/Procedures: Reports: None Respiratory Surgical History: Reports: None Female Surgical History: Reports: None Social & Family History - Family History Family Medical History: Noncontributory Endocrine/Metabolic: Reports: Diabetes, Type I - Tobacco Use Smoking Status *Q: Never Smoker Second Hand Smoke Exposure: No - Caffeine Use Caffeine Use: Reports: None - Recreational Drug Use Recreational Drug Use: No ED ROS GENERAL - Review of Systems Review Of Systems: Comprehensive ROS is negative, except as noted in HPI. ED EXAM, GENERAL - Physical Exam Exam: See Below (see dictation) Course - Vital Signs Last Recorded V/S: Last Vital Signs Temp 100.1 F 06/11/19 17:00 Pulse 90 06/11/19 17:00 Resp 16 06/11/19 17:00 BP 132/91 H 06/11/19 17:00 Pulse Ox 99 06/11/19 17:00 Departure - Departure Time of Disposition: 17:28 Disposition: Home, Self-Care 01 Clinical Impression: Constipation Qualifiers: Constipation type: unspecified constipation type Qualified Code(s): K59.00 - Constipation, unspecified - Discharge Information Referrals: Dionisio Capone MD [Primary Care Provider] - Additional Instructions: The following information is given to patients seen in the emergency department who are being discharged to home. This information is to outline your options for follow-up care. We provide all patients seen in our emergency department with a follow-up referral. The need for follow-up, as well as the timing and circumstances, are variable depending upon the specifics of your emergency department visit. If you don't have a primary care physician on staff, we will provide you with a referral. We always advise you to contact your personal physician following an emergency department visit to inform them of the circumstance of the visit and for follow-up with them and/or the need for any referrals to a consulting specialist. The emergency department will also refer you to a specialist when appropriate. This referral assures that you have the opportunity for follow-up care with a specialist. All of these measure are taken in an effort to provide you with optimal care, which includes your follow-up. Under all circumstances we always encourage you to contact your private physician who remains a resource for coordinating your care. When calling for follow-up care, please make the office aware that this follow-up is from your recent emergency room visit. If for any reason you are refused follow-up, please contact the [facility] Emergency Department at and asked to speak to the emergency department charge nurse. [facility] [address] [place] [address], [place] [address] [facility] [address] [place] [address] 1. Use [id number] glycerin suppositories and MiraLAX [id number] as directed for constipation. 2. Follow-up with your primary care provider as discussed. Return to the ED as needed and as discussed. Sepsis Event Note - Evaluation Sepsis Screening Result: No Definite Risk - Focused Exam Vital Signs: Vital Signs Temp Pulse Resp BP Pulse Ox 06/11/19 17:00 100.1 F 90 16 132/91 H 99 Date Exam was Performed: 06/11/19 Time Exam was Performed: 17:27
== END 2019-06-11 17:50 | disposition home or self-care (01) ==
LOC: MW.ED 16:33
DX: K59.00 Constipation, unspecified (principal); F41.9 Anxiety disorder, unspecified; E66.9 Obesity, unspecified; Z68.41 Body mass index [BMI] 40.0-44.9, adult
CPT/HCPCS: 99283

== ENCOUNTER 2019-06-21 04:42 | Emergency (ER) | payer SELFPAY ==
--- NOTE | 2019-06-21 05:07 | EDM.PDOC ---
ED HPI GENERAL MEDICAL PROBLEM - General Chief Complaint: Abdominal Pain Stated Complaint: SHORTNESS OF BREATH Time Seen by Provider: 06/21/19 05:02 Source of Information: Reports: Patient - History of Present Illness INITIAL COMMENTS - FREE TEXT/NARRATIVE: The patient presents to the ER complaining of epigastric discomfort and shortness of breath rash on her hands. The patient states that she has been having a lot of "breathing problems" over the last several months and she has been in and out of hospitals. No one has found anything wrong with her lungs but her primary care physician has her scheduled for an endoscopy. She states that she is feeling short of breath again and is having sharp stabbing pains in her epigastric region. No fevers or chills, no coughing, no hemoptysis, no orthopnea or dyspnea with exertion. Nothing seems to make this better or worse and she states she has not had anything to eat in about 24 hours. No nausea or vomiting, no lower abdominal discomfort, no dysuria urinary frequency, no back pain no other complaints. epigastric Pain Score (Numeric/FACES): 6 - Related Data Allergies Allergy/AdvReac Type Severity Reaction Status Date / Time No Known Allergies Allergy Verified 06/21/19 04:51 Home Meds: Home Meds LORazepam [Ativan] 0.5 mg PO Q8HR PRN 5 Days #15 tablet MDD Not to exceed 3 in a day 05/26/19 [Rx] Omeprazole Magnesium [Prilosec Otc] 20 mg PO DAILY 06/21/19 [History] Past Medical History - Past Health History Medical/Surgical History: Denies Medical/Surgical History HEENT History: Reports: None Cardiovascular History: Reports: None Respiratory History: Reports: None Gastrointestinal History: Reports: Gastritis Genitourinary History: Reports: None 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: Musculoskeletal History: Reports: None Neurological History: Reports: None Psychiatric History: Reports: Anxiety Other Psychiatric History: post depression Endocrine/Metabolic History: Reports: Obesity/BMI 30+ Insulin Pump Model and Truck Driving: None Hematologic History: Reports: None Immunologic History: Reports: None Oncologic (Cancer) History: Reports: None Dermatologic History: Reports: None - Infectious Disease History Infectious Disease History: Reports: None - Past Surgical History Head Surgeries/Procedures: Reports: None Respiratory Surgical History: Reports: None Female Surgical History: Reports: None Social & Family History - Family History Family Medical History: Noncontributory Endocrine/Metabolic: Reports: Diabetes, Type I - Tobacco Use Smoking Status *Q: Never Smoker - Caffeine Use Caffeine Use: Reports: None - Recreational Drug Use Recreational Drug Use: Yes Drug Use in Last 12 Months: Yes Recreational Drug Type: Reports: Marijuana/Hashish Recreational Drug Use Frequency: Rarely ED ROS GENERAL - Review of Systems Review Of Systems: See Below Free Text/Narrative/Comment: Positive for shortness of breath, negative for chest pain, positive for epigastric pain, negative for nausea vomiting, negative fevers or chills, negative weight loss, pertinent positives and negatives are per HPI ED EXAM, GI/ABD - Physical Exam Exam: See Below General Appearance: Alert, No Apparent Distress, Anxious, Obese Eyes: Bilateral: EOMI Ears: Normal External Exam Nose: Normal Inspection Throat/Mouth: Normal Inspection Head: Atraumatic, Normocephalic Neck: Normal Inspection, Supple, Full Range of Motion Respiratory/Chest: No Respiratory Distress, Lungs Clear, Normal Breath Sounds, No Accessory Muscle Use. No: Rales, Rhonchi, Wheezing Cardiovascular: Normal Peripheral Pulses, Regular Rate, Rhythm, No Edema, No Murmur, No Rub GI/Abdominal Exam: Soft, Other (Exam is limited secondary to obesity but there is subjective epigastric tenderness and no right upper quadrant tenderness, no rebound or guarding, there is definitely no lower abdominal tenderness) Back Exam: Normal Inspection, Full Range of Motion Extremities: Normal Inspection, Normal Range of Motion, Non-Tender, No Pedal Edema, Normal Capillary Refill Neurological: Alert, Oriented, Normal Cognition, Normal Gait Psychiatric: Normal Affect, Anxious Skin Exam: Warm, Dry Lymphatic: Other (On both of the patient's palms there are several well demarcated macular, blanchable erythema with no induration, vesicles, no ulcerations, the pads of the distal fingers superficial peeling of the epidermis only) Course - Vital Signs Text/Narrative:: ECG was read and interpreted by me -P waves before every regular QRS with a ventricular rate of 82 bpm. NC, QRS and QT intervals are unremarkable. ST segments are baseline and T wave morphology is normal. Final interpretation is a normal sinus rhythm and a normal ECG. The patient has a heart score of 0 and is PERC zero. Other more, nothing here sounds concerning for pulmonary embolism, coronary syndrome, etc. the patient does not need any type of extensive cardiopulmonary work-up at this time. Given that the patient is having no lower abdominal tenderness or even any periumbilical tenderness at this time the patient does not require urinalysis. Everything is definitely in the epigastric region and the patient's pain appears subjective at best. Lab work returned which is unremarkable from an emergency standpoint and given that the patient has been in and out of hospitals with nothing specific found at this time I feel that she is stable for discharge outpatient follow-up. Last Recorded V/S: Last Vital Signs Temp 36.2 C 06/21/19 04:43 Pulse 89 06/21/19 04:43 Resp 20 06/21/19 04:43 BP 139/85 06/21/19 04:43 Pulse Ox 99 06/21/19 04:43 - Orders/Labs/Meds Orders: Active Orders 24 hr Category Date Time Status EKG Documentation Completion [RC] STAT Care 06/21/19 04:33 Active Labs: Laboratory Tests 06/21/19 06/21/19 Range/Units 05:11 05:11 WBC 11.82 H (4.0-11.0) K/uL RBC 4.71 (4.30-5.90) M/uL Hgb 13.9 (12.0-16.0) g/dL Hct 40.6 (36.0-46.0) % MCV 86.2 (80.0-98.0) fL MCH 29.5 (27.0-32.0) pg MCHC 34.2 (31.0-37.0) g/dL RDW Std Deviation 42.3 (28.0-62.0) fl RDW Coeff of Fiona 14 (11.0-15.0) % Plt Count 223 (150-400) K/uL MPV 12.30 H (7.40-12.00) fL Neut % (Auto) 69.2 (48.0-80.0) % Lymph % (Auto) 23.6 (16.0-40.0) % [place] % (Auto) 6.4 (0.0-15.0) % Eos % (Auto) 0.6 (0.0-7.0) % Baso % (Auto) 0.2 (0.0-1.5) % Neut # (Auto) 8.2 H (1.4-5.7) K/uL Lymph # (Auto) 2.8 H (0.6-2.4) K/uL [place] # (Auto) 0.8 (0.0-0.8) K/uL Eos # (Auto) 0.1 (0.0-0.7) K/uL Baso # (Auto) 0.0 (0.0-0.1) K/uL Nucleated RBC % 0.0 /100WBC Nucleated RBCs # 0 K/uL Sodium 142 (136-145) mmol/L Potassium 3.2 L (3.5-5.1) mmol/L Chloride 106 (98-107) mmol/L Carbon Dioxide 22.4 (21.0-32.0) mmol/L BUN 10 (7.0-18.0) mg/dL Creatinine 0.9 (0.6-1.0) mg/dL Est Cr Clr Drug Dosing TNP Estimated GFR (MDRD) > 60.0 ml/min Glucose 93 (74-106) mg/dL Calcium 9.3 (8.5-10.1) mg/dL Total Bilirubin 0.6 (0.2-1.0) mg/dL AST 10 L (15-37) IU/L ALT 30 (14-63) IU/L Alkaline Phosphatase 83 (46-116) U/L Total Protein 7.8 (6.4-8.2) g/dL Albumin 4.2 (3.4-5.0) g/dL Globulin 3.6 (2.6-4.0) g/dL Albumin/Globulin Ratio 1.2 (0.9-1.6) Lipase 107 (73-393) U/L Departure - Departure Time of Disposition: 05:50 Disposition: Home, Self-Care 01 Condition: Good Clinical Impression: Epigastric abdominal pain - Discharge Information Instructions: Abdominal Pain, Adult, [id number] Referrals: Dionisio Capone MD [Primary Care Provider] - Forms: ED Department Discharge Sepsis Event Note - Evaluation Sepsis Screening Result: No Definite Risk - Focused Exam Vital Signs: Vital Signs Temp Pulse Resp BP Pulse Ox 06/21/19 04:43 36.2 C 89 20 139/85 99 Date Exam was Performed: 06/21/19 Time Exam was Performed: 05:46 - My Orders Last 24 Hours: My Active Orders 06/21/19 04:33 EKG Documentation Completion [RC] STAT - Assessment/Plan Last 24 Hours: My Active Orders 06/21/19 04:33 EKG Documentation Completion [RC] STAT
[2019-06-21 05:38] LABS: BLOOD UREA NITROGEN,BUN 10 mg/dL (7.0-18.0); CARBON DIOXIDE,CO2 22.4 mmol/L (21.0-32.0); CHLORIDE,CL 106 mmol/L (98-107); GLUCOSE RANDOM 93 mg/dL (74-106); LIPASE 107 U/L (73-393); POTASSIUM,K 3.2 mmol/L (3.5-5.1); SODIUM,NA 142 mmol/L (136-145)
[2019-06-21 05:51] VITALS: BP 138/90; PULSE 86
== END 2019-06-21 05:57 | disposition home or self-care (01) ==
LOC: MW.ED 04:42
DX: R10.13 Epigastric pain (principal)
CPT/HCPCS: 36415; 80053; 83690; 85025; 93005; 99284; 99285-25

== ENCOUNTER 2020-04-09 21:45 | Emergency (ER) | payer SELFPAY ==
[2020-04-09] MEDS: Ketorolac 15 MG/ML SDV IM ONE (23:01)
--- NOTE | 2020-04-09 23:01 | CR ---
INDICATION: Dyspnea TECHNIQUE: Portable upright AP view of the chest COMPARISON: PA and lateral chest radiographs 05/26/2019 FINDINGS: The lungs are clear. There is no sizable pleural effusion or pneumothorax. The cardiomediastinal silhouette is normal. The visualized osseous structures are unremarkable. IMPRESSION: No acute intrathoracic process. Dictated by Gema Saab MD @ Apr 09 2020 10:58PM Signed by Dr. Gema Saab @ Apr 09 2020 11:00PM
--- NOTE | 2020-04-09 23:49 | EDM.PDOC ---
ED HPI GENERAL MEDICAL PROBLEM - General Chief Complaint: Respiratory Problem Stated Complaint: SORE THROAT Time Seen by Provider: 04/09/20 22:06 - History of Present Illness INITIAL COMMENTS - FREE TEXT/NARRATIVE: CHIEF COMPLAINT(S): Sore throat HISTORY OF PRESENT ILLNESS: This is a 24-year-old woman with without any significant past medical history who comes to the emergency department with a chief complaint of sore throat. The patient states that over the last 5 to 6 days she has been experiencing cold-like symptoms. She states that her son was also sick. She states that she has been experiencing sore throat, runny nose, congestion, and cough. She denies any productive cough. She denies any chest pain but states that she is concerned that she may have pneumonia. She states that she has been taking Tylenol and NyQuil with mild relief. She denies any drooling, pain with swallowing. She denies any fevers currently. 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 She denies any other known contacts. She denies any headache but states that she does have some decreased taste but her sense of smell is normal. She denies any other symptoms REVIEW OF SYSTEMS: Constitutional: Denies fever, chills. Eyes: Denies eye pain Ears, Nose, Mouth, & Throat: Positive for earache, sore throat, runny nose. De nies trismus, drooling Cardiovascular: Denies chest pain Respiratory: Positive for cough. Denies shortness of breath Gastrointestinal: Denies Nausea, vomiting, diarrhea, hematochezia. Genitourinary: Denies hematuria, dysuria Skin:Denies a rash Neurological: Denies blurred vision, headache Psychiatric: Denies depression PAST MEDICAL HISTORY: As per history of present illness and as reviewed below otherwise noncontributory. SURGICAL HISTORY: As per history of present illness and as reviewed below otherwise noncontributory. LMP: Currently on her menstrual period SOCIAL HISTORY: As per history of present illness and as reviewed below otherwise noncontributory. FAMILY HISTORY: As per history of present illness and as reviewed below otherwise noncontributory. EXAMINATION OF ORGAN SYSTEMS/BODY AREAS: Constitutional: Blood pressure was 122/67, heart rate 101, respiratory rate 17 with an oxygen saturation 95% on room air. Temperature 35.0 temporally General: Overall well-appearing woman who is in no acute distress Psychiatric: Appropriate mood and affect. Eyes: No scleral icterus or conjunctival erythema ENMT: Moist mucous membranes. Bilateral tonsillar swelling with mild amount of exudate. Uvula was midline. No trismus or drooling present. Bilateral tympanic membranes are clear without any effusion or drainage. Bilateral nasal turbinates are mildly erythematous with clear nasal drainage. Cardiovascular: Regular, rate, and rhythm. No gallops, murmurs, or rubs. Bilateral upper extremity pulses symmetric and intact. No peripheral edema. No JVD. Respiratory: Lungs clear to auscultation bilaterally. No wheezes, rales, or rhonchi. Patient was intermittently coughing. Gastrointestinal: Soft, non-tender, non-distended. Normoactive bowel sounds Genitourinary: No suprapubic tenderness Musculoskeletal: Normal range of motion. Skin: No lesions or abrasions. Neurological: Alert, GCS 15 MEDICAL DECISION MAKING AND COURSE IN THE ED WITH INTERPRETATION/REVIEW OF DIAGNOSTIC STUDIES: This is a 24-year-old woman and without any significant past medical history who comes to the emergency department with approximately 1 week of viral-like symptoms with possible coronavirus infection. At this time the patient vitals are stable. We will obtain a chest x-ray to evaluate for pneumonia. Will also obtain strep swab, mono swab, and coronavirus swab. We will provide the patient with Toradol IM for pain relief. I do not believe any other labs or imaging are indicated. Laboratory: Coronavirus is negative. Strep is negative, mono is negative. The radiological images were viewed by myself along with reading the report from the radiologist. Chest x-ray does not reveal any acute cardiopulmonary process. After labs and imaging I discussed the results with the patient. I discussed with her at this time I do believe she is suffering from viral syndrome. I discussed the use of Tylenol and Motrin for pain relief. She is to return for any new worsening symptoms such as drooling, trismus, fever, worsening shortness of breath. She was amenable to discharge at this time and had no further questions. DISPOSITION: The patient was discharged home in stable condition. The patient will follow up with PCP as needed CONDITION: Fair PROCEDURES: None FINAL IMPRESSION(S)/DIAGNOSES: 1. Acute viral syndrome Matthew Black M.D. generalized Pain Score (Numeric/FACES): 5 - Related Data Allergies Allergy/AdvReac Type Severity Reaction Status Date / Time No Known Allergies Allergy Verified 04/09/20 21:55 Home Meds: Home Meds . 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: Musculoskeletal History: Reports: None Neurological History: Reports: None Psychiatric History: Reports: Anxiety, Depression Other Psychiatric History: post depression Endocrine/Metabolic History: Reports: Obesity/BMI 30+ Insulin Pump Model and Carpenter Foreman: None Hematologic History: Reports: None Immunologic History: Reports: None Oncologic (Cancer) History: Reports: None Dermatologic History: Reports: None - Infectious Disease History Infectious Disease History: Reports: None - Past Surgical History Head Surgeries/Procedures: Reports: None Respiratory Surgical History: Reports: None Female Surgical History: Reports: None Social & Family History - Family History Family Medical History: Noncontributory Endocrine/Metabolic: Reports: Diabetes, Type I - Tobacco Use Tobacco Use Status *Q: Never Tobacco User - Caffeine Use Caffeine Use: Reports: None - Recreational Drug Use Recreational Drug Use: Yes Recreational Drug Type: Reports: Marijuana/Hashish Recreational Drug Use Frequency: Weekly ED ROS GENERAL - Review of Systems Review Of Systems: See Below ED EXAM, GENERAL - Physical Exam Exam: See Below Course - Vital Signs Last Recorded V/S: Last Vital Signs Temp 35.4 C L 04/09/20 23:59 Pulse 83 04/09/20 23:59 Resp 17 04/09/20 23:59 BP 140/86 04/09/20 23:59 Pulse Ox 93 L 04/09/20 23:59 - Orders/Labs/Meds Orders: Active Orders 24 hr Category Date Time Status CORONAVIRUS COVID-19 PCR PHL Stat Lab 04/09/20 22:47 Ordered CULTURE STREP A CONFIRMATION [RM] Stat Lab 04/09/20 23:00 Results STREP SCRN A RAPID W CULT CONF [RM] Stat Lab 04/09/20 23:00 Results Labs: Laboratory Tests 11/03/20 11/03/20 Range/Units 22:57 23:00 Monoscreen NEGATIVE (NEG) SARS CoV-2 RNA Rapid ELI NEGATIVE (NEGATIVE) Meds: Medications Discontinued Medications Generic Name Dose Route Start Last Admin Trade Name Sherie PRZack Reason Stop Dose Admin Dexamethasone 10 mg 04/09/20 23:42 04/09/20 23:57 Dexamethasone PO 04/09/20 23:43 10 mg ONETIME ONE Administration Ketorolac Tromethamine 15 mg 04/09/20 22:46 04/09/20 23:01 Toradol IM 04/09/20 22:47 15 mg ONETIME ONE Administration Departure - Departure Time of Disposition: 23:47 Disposition: Home, Self-Care 01 Condition: Fair Clinical Impression: Viral syndrome, Viral pharyngitis - Discharge Information *PRESCRIPTION DRUG MONITORING PROGRAM REVIEWED*: No *COPY OF PRESCRIPTION DRUG MONITORING REPORT IN PATIENT JULIANNE: No Instructions: Viral Respiratory Infection, [id number], Sore Throat, [id number] Referrals: PCP,None [Primary Care Provider] - Forms: ED Department Discharge Additional Instructions: The patient is informed of any results of their evaluation and diagnostic workup and all questions are answered. They are given discharge instructions and return precautions. The patient is stable for discharge. The patient states they understand and agree with the plan and that they will return if their symptoms get worse or if they have any new concerns. The following information is given to patients seen in the emergency department who are being discharged to home. This information is to outline your options for follow-up care. We provide all patients seen in our emergency department with a follow-up referral. The need for follow-up, as well as the timing and circumstances, are variable depending upon the specifics of your emergency department visit. If you don't have a primary care physician on staff, we will provide you with a referral. We always advise you to contact your personal physician following an emergency department visit to inform them of the circumstance of the visit and for follow-up with them and/or the need for any referrals to a consulting specialist. The emergency department will also refer you to a specialist when appropriate. This referral assures that you have the opportunity for follow-up care with a specialist. All of these measure are taken in an effort to provide you with optimal care, which includes your follow-up. Under all circumstances we always encourage you to contact your private physician who remains a resource for coordinating your care. When calling for follow-up care, please make the office aware that this follow-up is from your recent emergency room visit. If for any reason you are refused follow-up, please contact the [facility] Emergency Department at and asked to speak to the emergency department charge nurse. [facility] [address], [place] [address] [facility] [address] [place] [address] PLEASE CONTINUE TO TAKE TYLENOL AND MOTRIN FOR FEVER AND PAIN RELIEF. RETURN FOR ANY NEW OR WORSENING SYMPTOMS Sepsis Event Note (ED) - Evaluation Sepsis Screening Result: No Definite Risk - Focused Exam Vital Signs: Vital Signs Temp Pulse Resp BP Pulse Ox 04/09/20 23:59 35.4 C L 83 17 140/86 93 L 04/09/20 21:55 35 C L 101 H 17 122/67 95 - My Orders Last 24 Hours: My Active Orders 04/09/20 22:47 CORONAVIRUS COVID-19 PCR PHL Stat 04/09/20 23:00 CULTURE STREP A CONFIRMATION [RM] Stat STREP SCRN A RAPID W CULT CONF [RM] Stat - Assessment/Plan Last 24 Hours: My Active Orders 04/09/20 22:47 CORONAVIRUS COVID-19 PCR PHL Stat 04/09/20 23:00 CULTURE STREP A CONFIRMATION [RM] Stat STREP SCRN A RAPID W CULT CONF [RM] Stat
[2020-04-09] MEDS: Dexamethasone 4 MG Tab PO ONE (23:57)
[2020-04-10] VITALS: BP 140/86; PULSE 83
== END 2020-04-10 00:10 | disposition home or self-care (01) ==
LOC: MW.ED 21:45
DX: J02.9 Acute pharyngitis, unspecified (principal); B34.9 Viral infection, unspecified; Z20.828 Contact with and (suspected) exposure to other viral communicable diseases
CPT/HCPCS: 36415; 71045; 86308; 87081; 87635; 87880; 96372; 99283; J1885; J8540; 99282; U0002

== ENCOUNTER 2020-04-12 07:36 | Emergency (ER) | payer SELFPAY ==
[2020-04-12] MEDS ORDERED: Dexamethasone 10 MG/ML SDV IVPUSH ONE (08:20)
[2020-04-12] MEDS ORDERED: Sodium Chloride 0.9% 10 ML Syringe FLUSH PRN (08:20)
[2020-04-12] MEDS ORDERED: Sodium Chloride 0.9% 1,000 ML IV ONE (08:20)
[2020-04-12] MEDS ORDERED: Sodium Chloride 0.9% 2.5 ML Syringe FLUSH PRN (08:20)
--- NOTE | 2020-04-12 08:31 | EDM.PDOC ---
ED HPI GENERAL MEDICAL PROBLEM - General Chief Complaint: Respiratory Problem Stated Complaint: COUGH, CONGESTION Time Seen by Provider: 04/12/20 07:56 Source of Information: Reports: Patient History Limitations: Reports: No Limitations - History of Present Illness INITIAL COMMENTS - FREE TEXT/NARRATIVE: History of present illness: [Patient is 24-year-old otherwise healthy female who presents with chief complaint of sore throat, difficulty swallowing. She was seen here few days ago and got worked up including negative Covid swab, negative strep, negative mono, and otherwise reassuring work-up and was told she had a viral syndrome and was discharged home. She states that she been taking [id number] cough and cold remedies with minimal relief. She states that over the last day or so she has had worsening difficulty with swallowing and pain associated with swallowing. She complains of some pain radiating towards her right ear. She denies fever. Denies vomiting or diarrhea. Denies any chest pain or shortness of breath. Is concerned about her worsening sore throat and decreased swallowing ability.] Review of systems: As per history of present illness and below otherwise all systems reviewed and negative. Past medical history: As per history of present illness and as reviewed below otherwise noncontributory. Surgical history: As per history of present illness and as reviewed below otherwise noncontributory. Social history: No reported history of drug or alcohol abuse. Family history: As per history of present illness and as reviewed below otherwise noncontributory. Physical exam: General: Awake, alert, no acute distress, A&O X3. HEENT: Atraumatic, normocephalic, pupils reactive, negative for conjunctival pallor or scleral icterus, mucous membranes moist, neck supple, nontender, trachea midline. Patient with significantly enlarged bilateral tonsils with white exudate. uvula is midline Lungs: Clear to auscultation, breath sounds equal bilaterally, chest nontender. Heart: RRR, normal S1S2, no JVD. Abdomen: Soft, nondistended, nontender. Negative for masses or hepatosplenomegaly Pelvis: Stable nontender. Genitourinary: Deferred. Rectal: Deferred. Extremities: Atraumatic, no edema, Neurovascular unremarkable. Neuro: Motor and sensory grossly intact throughout. Exam nonfocal. Diagnostics: [] Therapeutics: [] Impression: [] Plan: [] Definitive disposition and diagnosis as appropriate pending reevaluation and review of above. 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: Musculoskeletal History: Reports: None Neurological History: Reports: None Psychiatric History: Reports: Anxiety, Depression Other Psychiatric History: post depression Endocrine/Metabolic History: Reports: Obesity/BMI 30+ Insulin Pump Model and Carbon Setter: None Hematologic History: Reports: None Immunologic History: Reports: None Oncologic (Cancer) History: Reports: None Dermatologic History: Reports: None - Infectious Disease History Infectious Disease History: Reports: Chicken Pox - Past Surgical History Head Surgeries/Procedures: Reports: None Respiratory Surgical History: Reports: None Female Surgical History: Reports: None Social & Family History - Family History Family Medical History: Noncontributory Endocrine/Metabolic: Reports: Diabetes, Type I - Tobacco Use Tobacco Use Status *Q: Never Tobacco User - Caffeine Use Caffeine Use: Reports: None - Recreational Drug Use Recreational Drug Use: Yes Drug Use in Last 12 Months: Yes Recreational Drug Type: Reports: Marijuana/Hashish Recreational Drug Use Frequency: Weekly ED ROS GENERAL - Review of Systems Review Of Systems: Comprehensive ROS is negative, except as noted in HPI. ED EXAM, GENERAL - Physical Exam Exam: See Below (see h and p) Course - Vital Signs Text/Narrative:: Patient reports feeling much better after getting IV fluids, steroids, and antibiotics. Tonsils are bilaterally enlarged, her previous strep swab had group B strep growing out on culture. Given her worsening symptoms I feel antibiotics are indicated at this time. Sent home with prescription for amoxicillin. She reports feeling much better after getting the treatment here in the ED. Tolerating oral secretions, no stridor, no respiratory distress at the time of discharge. Last Recorded V/S: Last Vital Signs Temp 36.3 C 04/12/20 12:26 Pulse 76 04/12/20 12:26 Resp 18 04/12/20 12:26 BP 132/81 04/12/20 12:26 Pulse Ox 98 04/12/20 12:26 - Orders/Labs/Meds Orders: Active Orders 24 hr Category Date Time Status CULTURE STREP A CONFIRMATION [RM] Stat Lab 04/12/20 09:51 Results STREP SCRN A RAPID W CULT CONF [RM] Stat Lab 04/12/20 09:51 Results Saline Lock Insert [OM.PC] Stat Oth 04/12/20 08:20 Ordered Labs: Laboratory Tests 04/12/20 04/12/20 04/12/20 Range/Units 08:30 08:30 08:30 WBC 14.66 H (4.0-11.0) K/uL RBC 4.54 (4.30-5.90) M/uL Hgb 13.4 (12.0-16.0) g/dL Hct 41.2 (36.0-46.0) % MCV 90.7 (80.0-98.0) fL MCH 29.5 (27.0-32.0) pg MCHC 32.5 (31.0-37.0) g/dL RDW Std Deviation 45.9 (28.0-62.0) fl RDW Coeff of Fiona 14 (11.0-15.0) % Plt Count 239 (150-400) K/uL MPV 11.90 (7.40-12.00) fL Neut % (Auto) 75.6 (48.0-80.0) % Lymph % (Auto) 17.0 (16.0-40.0) % Nance % (Auto) 7.1 (0.0-15.0) % Eos % (Auto) 0.1 (0.0-7.0) % Baso % (Auto) 0.2 (0.0-1.5) % Neut # (Auto) 11.1 H (1.4-5.7) K/uL Lymph # (Auto) 2.5 H (0.6-2.4) K/uL Nance # (Auto) 1.0 H (0.0-0.8) K/uL Eos # (Auto) 0.0 (0.0-0.7) K/uL Baso # (Auto) 0.0 (0.0-0.1) K/uL Nucleated RBC % 0.0 /100WBC Nucleated RBCs # 0 K/uL Sodium 139 (136-145) mmol/L Potassium 3.4 L (3.5-5.1) mmol/L Chloride 104 (98-107) mmol/L Carbon Dioxide 23.4 (21.0-32.0) mmol/L BUN 12 (7.0-18.0) mg/dL Creatinine 0.8 (0.6-1.0) mg/dL Est Cr Clr Drug Dosing 109.38 mL/min Estimated GFR (MDRD) > 60.0 ml/min Glucose 90 (74-106) mg/dL Calcium 9.0 (8.5-10.1) mg/dL HCG, Qual NEGATIVE (NEG) Meds: Medications Discontinued Medications Generic Name Dose Route Start Last Admin Trade Name Freq PRN Reason Stop Dose Admin Dexamethasone 10 mg 04/12/20 08:20 04/12/20 08:50 Decadron IVPUSH 04/12/20 08:21 10 mg ONETIME ONE Administration Sodium Chloride 1,000 mls @ 999 mls/hr 04/12/20 08:20 04/12/20 08:49 Normal Saline IV 04/12/20 09:20 999 mls/hr .Bolus ONE Administration Ampicillin Sodium/Sulbactam 100 mls @ 200 mls/hr 04/12/20 09:39 04/12/20 11:42 Sodium 3 gm/ Sodium Chloride IV 04/12/20 10:08 Not Given ONETIME ONE Ampicillin Sodium/Sulbactam 100 mls @ 200 mls/hr 04/12/20 09:51 04/12/20 11:10 Sodium 3 gm/ Sodium Chloride IV 04/12/20 10:08 200 mls/hr ONETIME ONE Administration Iopamidol 75 ml 04/12/20 11:05 04/12/20 11:06 Isovue Multipack-370 (76%) IVPUSH 04/12/20 11:06 75 ml ONETIME ONE Administration Sodium Chloride 10 ml 04/12/20 08:20 04/12/20 11:08 Saline Flush FLUSH 10 ml ASDIRECTED PRN Administration Keep Vein Open Sodium Chloride 2.5 ml 04/12/20 08:20 Saline Flush FLUSH ASDIRECTED PRN Keep Vein Open Departure - Departure Time of Disposition: 12:19 Disposition: Home, Self-Care 01 Condition: Good Clinical Impression: Tonsillitis - Discharge Information Prescriptions: Amoxicillin 875 mg PO BID #14 tablet Instructions: Tonsillitis, [id number] Referrals: PCP,None [Primary Care Provider] - Forms: ED Department Discharge Additional Instructions: Follow-up with primary care doctor. Take all medications as prescribed. Return to the ER with any new or worsening symptoms. The following information is given to patients seen in the emergency department who are being discharged to home. This information is to outline your options for follow-up care. We provide all patients seen in our emergency department with a follow-up referral. The need for follow-up, as well as the timing and circumstances, are variable depending upon the specifics of your emergency department visit. If you don't have a primary care physician on staff, we will provide you with a referral. We always advise you to contact your personal physician following an emergency department visit to inform them of the circumstance of the visit and for follow-up with them and/or the need for any referrals to a consulting specialist. The emergency department will also refer you to a specialist when appropriate. This referral assures that you have the opportunity for follow-up care with a specialist. All of these measure are taken in an effort to provide you with optimal care, which includes your follow-up. Under all circumstances we always encourage you to contact your private physician who remains a resource for coordinating your care. When calling for follow-up care, please make the office aware that this follow-up is from your recent emergency room visit. If for any reason you are refused follow-up, please contact the [facility] Emergency Department at and asked to speak to the emergency department charge nurse. Sepsis Event Note (ED) - Evaluation Sepsis Screening Result: No Definite Risk - Focused Exam Vital Signs: Vital Signs Temp Pulse Resp BP Pulse Ox 04/12/20 12:26 36.3 C 76 18 132/81 98 04/12/20 07:47 36.2 C 89 18 137/85 99 - My Orders Last 24 Hours: My Active Orders 04/12/20 08:20 Saline Lock Insert [OM.PC] Stat 04/12/20 09:51 CULTURE STREP A CONFIRMATION [RM] Stat STREP SCRN A RAPID W CULT CONF [RM] Stat - Assessment/Plan Last 24 Hours: My Active Orders 04/12/20 08:20 Saline Lock Insert [OM.PC] Stat 04/12/20 09:51 CULTURE STREP A CONFIRMATION [RM] Stat STREP SCRN A RAPID W CULT CONF [RM] Stat
[2020-04-12 09:25] LABS: BLOOD UREA NITROGEN,BUN 12 mg/dL (7.0-18.0); CARBON DIOXIDE,CO2 23.4 mmol/L (21.0-32.0); CHLORIDE,CL 104 mmol/L (98-107); GLUCOSE RANDOM 90 mg/dL (74-106); POTASSIUM,K 3.4 mmol/L (3.5-5.1); SODIUM,NA 139 mmol/L (136-145)
[2020-04-12] MEDS ORDERED: Ampicillin/Sulbactam Na 3 GM in Sodium Chloride 0.9% 100 ML IV ONE ×2 (09:39→09:51)
[2020-04-12] MEDS ORDERED: Iopamidol 755 MG/ML 500 ML Multipack Bottle IVPUSH ONE (11:05)
--- NOTE | 2020-04-12 11:27 | CT ---
Indication: Throat pain with clinical concern for retropharyngeal or parapharyngeal space abscess or peritonsillar abscess Technique: CT examination of the neck was performed. The study was acquired in the axial plane. A total of 75 milliliters of Isovue 370 was administered intravenously. Imaging was acquired from the mid frontal sinuses through just below the aortic arch. Sagittal and coronal reformatted imaging was performed. Comparison: None Findings: There is significant opacification of all the visible paranasal sinuses. This is consistent with paranasal sinus mucosal inflammatory disease. I see no bone destruction or expansion. The limited visualized intraorbital and intracranial contents appear normal. The tonsils are symmetric. I see no evidence of tonsillar phlegmon or abscess. The retropharyngeal space and the parapharyngeal space both appear normal. The parotid and submandibular glands show no acute finding. There is fatty infiltration of the parotid glands. Prominent upper jugular region lymph nodes bilaterally and symmetrically. These are likely reactive in a patient of this age. Oropharynx, nasopharynx, hypopharynx, larynx and airway as visualized appear normal. The thyroid appears normal. The lung apices appear normal. Impression: 1. Significant sinus inflammatory disease incidentally noted. This is probably acute on chronic disease. No bone destruction or expansion. 2. There is no evidence of tonsillar phlegmon or abscess. No abnormality in the parapharyngeal or retropharyngeal space. 3. Prominent upper cervical lymph nodes in a bilateral and symmetric pattern likely reactive. 4. Otherwise overall unremarkable examination Please note that all CT scans at this facility use dose modulation, iterative reconstruction, and/or weight-based dosing when appropriate to reduce radiation dose to as low as reasonably achievable. Dictated by Deshawn Preston MD @ Apr 12 2020 11:19AM Signed by Dr. Deshawn Preston @ Apr 12 2020 11:25AM
[2020-04-12 13:11] VITALS: BP 132/81; PULSE 76
== END 2020-04-12 12:30 | disposition home or self-care (01) ==
LOC: MW.ED 07:36
DX: J03.90 Acute tonsillitis, unspecified (principal); E66.9 Obesity, unspecified; Z68.41 Body mass index [BMI] 40.0-44.9, adult
CPT/HCPCS: 70491; 80048; 84703; 85025; 87081; 87880; 96365; 96375; 99284; J0295; J1100; J7030; J7050; Q9967